=== PATIENT | male | born 1960 | race Caucasian/White ===

== ENCOUNTER 2017-01-01 08:59 | Day surgery (SDC) | payer OTHER ==
[~2017-01-01 08:59] MED LIST: LACTATED RINGERS 1,000 ML IV SCH; LIDOCAINE 1% 20 ML VIAL (10MG/ML) FOR IV START INTRADERMA PRN
[2017-01-01 10:08] VITALS: TEMP 98
[2017-01-01] MEDS ORDERED: PROPOFOL 10 MG/ML 20 ML VIAL IV ONE (10:50)
[2017-01-01 11:18] VITALS: PULSE 59
--- NOTE | 2017-01-01 11:21 | P.PCN ---
Date of Procedure: 01/01/17 Procedure(s) Performed: Procedure: Total colonoscopy. Preoperative diagnosis: Screening for neoplasia. Postoperative diagnosis: Exam within normal limits. Preparation: HalfLytely prep. Sedation: Was provided by anesthesia. Brief clinical history: The patient is a 56-year-old male who is referred for this evaluation for screening for neoplasia age being his risk factor. There is no family history of colon cancer. The patient has no abdominal complaints, bleeding or anemia. This would be his first colonoscopy. Procedure: With the patient on his left lateral decubitus position and after informed consent and adequate sedation, the perianal area was inspected and it did not show any fissures or fistulas. There were no masses felt on digital rectal examination. The Olympus CFQ 160L video colonoscope was then inserted in the rectum in the usual fashion and advanced to the cecum. The mucosa appeared healthy. No polyps or tumors were seen or any obvious diverticular disease or other pathology. I retroflexed the endoscope in the rectum before the endoscope was withdrawn. The patient tolerated the procedure well. Plan: The patient was reassured. He will follow up with you as planned, and I recommended repeat exam in 10 years.
[2017-01-01 11:35] VITALS: BP 119/74; RESP 18
== END 2017-01-01 11:53 | disposition home or self-care (01) ==
LOC: ORWHC2ENDO 08:59
DX: Z12.11 Encounter for screening for malignant neoplasm of colon (principal); J44.9 Chronic obstructive pulmonary disease, unspecified; I10 Essential (primary) hypertension; Z79.1 Long term (current) use of non-steroidal anti-inflammatories (NSAID); Z79.899 Other long term (current) drug therapy; Z87.891 Personal history of nicotine dependence
CPT/HCPCS: G0121; J2704

== ENCOUNTER → 2017-02-05 | Outpatient (CLI) | payer OTHER ==
--- NOTE | 2017-02-05 09:56 | XR ---
Right knee HISTORY: Right knee pain 3 views of the right knee There is no evident joint effusion. Suspect there are vascular calcifications. Minimal remodeling, diane int space loss in the medial compartment noted, possible subchondral sclerosis. Alignment and bone mi neralization are normal. IMPRESSION: Mild osteoarthritic change is suspected. Consider knee MRI for better evaluation.
== END | disposition home or self-care (01) ==
LOC: RADXRYALE 09:26
PROVIDERS: ATTEND Physician Assistant
DX: M25.562 Pain in left knee (principal)

== ENCOUNTER → 2017-02-26 | Outpatient (CLI) | payer OTHER ==
--- NOTE | 2017-02-26 21:14 | MR ---
EXAMINATION TYPE: MR knee RT wo con DATE OF EXAM: 02/26/2017 COMPARISON: Knee x-ray February 05, 2017 HISTORY: Rt knee pain/injury 2 months ago TECHNIQUE: Multiplanar, multisequence images of the knee is performed without IV contrast. FINDINGS: MEDIAL MENISCUS: Anterior and posterior horns are intact without tear. LATERAL MENISCUS: Anterior and posterior horns are intact without tear. CRUCIATE LIGAMENTS: The anterior and posterior cruciate ligaments are intact and unremarkable. COLLATERAL LIGAMENTS: The medial collateral ligament and lateral collateral ligament complex are inta ct and unremarkable. EXTENSOR MECHANISM: Visualized quadriceps and patellar tendons are intact. EFFUSION: No significant suprapatellar joint effusion. POPLITEAL CYST: No popliteal/rodrigez cyst. TRICOMPARTMENT SPACES: There is mild tricompartment joint space loss and minimal central spurring. CARTILAGE: There is no significant chondromalacia patella. No significant cartilaginous loss is seen. BONE MARROW SIGNAL: No focal abnormal marrow signal is appreciated. OTHER: No additional significant abnormality is appreciated. IMPRESSION: No meniscal or ligamentous tear is seen. No suspicious finding is seen to account for pat ient's symptoms.
== END | disposition home or self-care (01) ==
LOC: RADMRIMAIN 19:32
PROVIDERS: ATTEND Physician Assistant
DX: M17.0 Bilateral primary osteoarthritis of knee (principal)

== ENCOUNTER → 2017-11-05 | Outpatient (CLI) | payer OTHER ==
--- NOTE | 2017-11-05 23:57 | MR ---
EXAMINATION TYPE: MR lumbar spine wo con DATE OF EXAM: 11/05/2017 COMPARISON: None HISTORY: low back pain x1 year TECHNIQUE: Multiplanar, multisequence images of the lumbar spine were acquired. Lumbar vertebra have normal alignment. Disc spaces are fairly normal. Lumbar nerve roots appear marco antonio l. There is no spinal stenosis. There is no compression fracture. There is no lumbar paraspinal mass. The upper sacroiliac joints appear intact. There is slight decreased signal in the L5-S1 disc. The n eural foramina appear widely patent. There is a small posterior disc bulge at L5-S1. IMPRESSION: Minor degenerative disc changes at L5-S1. No spinal stenosis. There is developmentally adequate spina l canal.
== END | disposition home or self-care (01) ==
LOC: RADMRIMAIN 21:45
PROVIDERS: ATTEND Nurse Practitioner
DX: M47.817 Spondylosis without myelopathy or radiculopathy, lumbosacral region (principal)
CPT/HCPCS: 72148

== ENCOUNTER → 2020-08-15 | Outpatient (CLI) | payer OTHER ==
--- NOTE | 2020-08-15 15:55 | XR ---
EXAMINATION TYPE: XR lumbosacral spine min 4V DATE OF EXAM: 08/15/2020 CLINICAL HISTORY: Lower back pain for 3 to 4 weeks, no known injury TECHNIQUE: Frontal, lateral, and oblique images of the lumbar spine are obtained. COMPARISON: MRI lumbar spine 11/05/2017 FINDINGS: There are 5 lumbar type vertebral bodies identified. The lumbar spine shows satisfactory alignment without evidence of acute fracture or dislocation. Vertebral body heights are within normal limits. No spondylolisthesis. There is minimal L5-S1 disc space narrowing. Mild degenerative spurri ng of the endplates diffusely. There is facet arthropathy of L5-S1 bilaterally. Calcified atheroscler otic disease of the abdominal aorta. IMPRESSION: 1. No acute fracture or dislocation is seen in the lumbar spine. 2. Mild degenerative disc disease, and L5-S1 facet arthropathy.
== END | disposition home or self-care (01) ==
LOC: RADXRYALE 11:47
PROVIDERS: ATTEND Family Medicine
DX: M51.37 Other intervertebral disc degeneration, lumbosacral region (principal)
CPT/HCPCS: 72110

== ENCOUNTER → 2020-08-30 | Outpatient (CLI) | payer OTHER ==
--- NOTE | 2020-08-31 06:13 | MR ---
EXAMINATION TYPE: MR lumbar spine wo con DATE OF EXAM: 08/30/2020 COMPARISON: MRI lumbar spine November 05, 2017 HISTORY: Low back pain for years that goes into both legs. TECHNIQUE: Multiplanar, multisequence imaging of the lumbar spine is performed without IV contrast. FINDINGS: Sagittal images of the lumbar spine show vertebral body heights and alignment to remain sat isfactory. Some increasing multilevel disc desiccation most prominent at L5-S1 level is noted. Mild disc space narrowing L5-S1 level redemonstrated. The conus medullaris remains normal in position and signal ending superior L1 level. The bone marrow signal intensity is within normal limits. Axial images show T12-L1, L1-L2, and L2-L3 levels also appear within normal limits. Axial images at L3-L4 level show mild broad disc bulge with spinal canal is preserved in bilateral ne ural foramina are patent. Axial images at L4-L5 level show mild facet arthropathy bilaterally. Axial images at L5-S1 level shows broad-based right paracentral disc protrusion. Spinal canal is pres erved. Some posterior spurring is present. Patent bilateral neural foramina. Paraspinal muscle bulk is maintained. IMPRESSION: Mild degenerative changes in the lumbar spine as detailed above, no significant progressi on from 2018 MRI.
== END | disposition home or self-care (01) ==
LOC: RADMRIMAIN 16:55
PROVIDERS: ATTEND Family Medicine
DX: M47.816 Spondylosis without myelopathy or radiculopathy, lumbar region (principal)
CPT/HCPCS: 72148

== ENCOUNTER → 2020-10-19 | Outpatient (CLI) | payer OTHER ==
[2020-10-19 09:54] VITALS: BP 159/97; PULSE 85; RESP 16; TEMP 97.9
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
== END ==
LOC: PNWHC3 09:32
PROVIDERS: ATTEND Specialist
DX: M47.816 Spondylosis without myelopathy or radiculopathy, lumbar region (principal); M51.36 Other intervertebral disc degeneration, lumbar region; J44.9 Chronic obstructive pulmonary disease, unspecified; F17.210 Nicotine dependence, cigarettes, uncomplicated
CPT/HCPCS: 99211

== ENCOUNTER → 2020-11-11 | Day surgery (SDC) | payer OTHER ==
[2020-11-10 09:04] VITALS: BMI 20.7
[~2020-11-11] MED LIST changes: -LIDOCAINE 1% 20 ML VIAL (10MG/ML) FOR IV START INTRADERMA PRN; +MIDAZOLAM 2 MG/2 ML VIAL ONE; +ROPIVACAINE 5MG/ML 20ML VIAL ONE; +TRIAMCINOLONE ACETONIDE 40 MG/ML 1 ML VIAL ONE; +fentaNYL (PF) 50 MCG/ML 2 ML AMP ONE
[2020-11-11 12:50] VITALS: TEMP 97.7
--- NOTE | 2020-11-11 13:32 | P.PCN ---
Date of Procedure: 11/11/20 Description of Procedure: Description of Procedure: Date of Procedure: 11/11/20 Surgeon: Marquis Meza Pathology: none sent Condition: stable Disposition: PACU Description of Procedure: PREOPERATIVE DIAGNOSIS : 1- Lumbar spondylosis with Facet Arthropathy without myelopathy . 2- Lumber degenerative disc disease POSTOPERATIVE DIAGNOSIS: 1- Lumbar spondylosis with Facet Arthropathy without myelopathy . 2- Lumber degenerative disc disease PROCEDURE: Second Diagnostic bilateral L4 -5 , and L5-S1 medial branch block under fluoroscopy Physician: Marquis Meza MD ANESTHESIA: Local with 1% lidocaine; IV moderate conscious sedation by the anesthesia Department . EBL: Negligible COMPLICATION: None. PROCEDURE INDICATION: Chronic low back pain secondary to Facet arthropathy unresponsive to conservative treatment. PROCEDURE DESCRIPTION: the patient was seen and identified in the preop holding area , risks and benefits and possible complications of the procedure and alternatives were discussed with the patient, and the patient agreed to proceed with the procedure and signed the consent. IV was started and vital signs monitored during the procedure and fluoroscopy was used to maximize the benefit and accuracy of the needle placement, sedation was given to decrease patient anxiety, patient was taken to the procedure room and placed in prone position vital signs monitored. The patient was brought into the procedure room and placed in prone position. Skin was prepped with Chloraprep and draped in a sterile manner. Lidocaine 1% was used to numb the skin up at the target points that were chosen as follows: at the L5-S1 level which corresponds to the dorsal ramus of L5 the target points were at the superior medial aspect of the sacral ala on each side of the spine on the AP view of fluoroscopy, and for theL3 and L4 medial branches the target points were the connection between the transverse process and the superior to go process of L4 and L5 respectively on the oblique views of fluoroscopy. I used 22-gauge 3-1/2 inch Quincke spinal needles for this procedure and after contacting bone at the target points mentioned above I injected 1 mL of a mixture of Kenalog 40 mg +5 MLS of Ropivacaine 0.5% PF . Patient tolerated procedure well. At the end of the procedure the needles removed and a bandage applied after the skin was cleaned the cleaning solution. patient was then taken to the recovery room in stable condition and monitored in the recovery room for 20-30 minutes and discharged home in stable condition after discharge criteria met . A copy of the needle placement picture was saved to the C-arm machine.
[2020-11-11 13:39] VITALS: RESP 17
--- NOTE | 2020-11-11 13:46 | FL ---
EXAMINATION TYPE: FL guided pain mgmt statistic DATE OF EXAM: 11/11/2020 HISTORY: Fluoroscopy time 7 seconds of fluoroscopy provided. IMPRESSION: 1. Fluoroscopy time.
[2020-11-11 13:53] VITALS: BP 125/80; PULSE 78
== END ==
LOC: ORPAIN 12:24
PROVIDERS: ATTEND Anesthesiology
DX: M47.816 Spondylosis without myelopathy or radiculopathy, lumbar region (principal); G89.29 Other chronic pain; J44.9 Chronic obstructive pulmonary disease, unspecified; F17.210 Nicotine dependence, cigarettes, uncomplicated; E03.9 Hypothyroidism, unspecified; G43.909 Migraine, unspecified, not intractable, without status migrainosus
CPT/HCPCS: 64493; 64494; 64495; J2250; J3301; J3010; J2795

== ENCOUNTER → 2020-12-07 | Outpatient (CLI) | payer OTHER ==
[2020-12-07 09:51] VITALS: BP 139/86; PULSE 72; RESP 18; TEMP 97.6
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
== END ==
LOC: PNWHC3 09:38
PROVIDERS: ATTEND Anesthesiology
DX: M51.36 Other intervertebral disc degeneration, lumbar region (principal); M47.816 Spondylosis without myelopathy or radiculopathy, lumbar region; Z87.891 Personal history of nicotine dependence
CPT/HCPCS: 99211

== ENCOUNTER 2021-01-27 09:24 | Day surgery (SDC) | payer OTHER ==
[2021-01-26 10:01] VITALS: BMI 20.7
[~2021-01-27 09:24] MED LIST changes: -MIDAZOLAM 2 MG/2 ML VIAL ONE; -ROPIVACAINE 5MG/ML 20ML VIAL ONE; -TRIAMCINOLONE ACETONIDE 40 MG/ML 1 ML VIAL ONE; -fentaNYL (PF) 50 MCG/ML 2 ML AMP ONE
[2021-01-27 10:22] VITALS: RESP 16; TEMP 98
[2021-01-27 10:32] LABS: HGB 15.1 gm/dL (13.0-17.5); MCH 33.5 pg (25.0-35.0); MCHC 34.3 g/dL (31.0-37.0); MCV 97.8 fL (80.0-100.0); Platelet Count 290 k/uL (150-450); RBC 4.49 m/uL (4.30-5.90); RDW 12.3 % (11.5-15.5); WBC 4.8 k/uL (3.8-10.6)
[2021-01-27] MEDS ORDERED: ROPIVACAINE 5MG/ML 20ML VIAL ONE (10:56)
[2021-01-27] MEDS ORDERED: TRIAMCINOLONE ACETONIDE 40 MG/ML 1 ML VIAL ONE (10:56)
[2021-01-27 11:03] LABS: ALT 25 U/L (4-49); AST 29 U/L (17-59); African American GFR (CKD) >90 (>60 ml/min/1.73 sqM); Albumin 4.2 g/dL (3.5-5.0); Alkaline Phosphatase 68 U/L (38-126); Anion Gap 6 mmol/L; Blood Urea Nitrogen 18 mg/dL (9-20); Calcium 9.5 mg/dL (8.4-10.2); Carbon Dioxide 27 mmol/L (22-30); Chloride 103 mmol/L (98-107); Creatine Kinase 126 U/L (55-170); Glucose 108 mg/dL (74-99); Non-African American GFR(CKD) >90 (>60 ml/min/1.73 sqM); Potassium 4.4 mmol/L (3.5-5.1); Sodium 136 mmol/L (137-145); Total Bilirubin 0.6 mg/dL (0.2-1.3); Total Protein 6.7 g/dL (6.3-8.2)
[2021-01-27] MEDS ORDERED: fentaNYL (PF) 50 MCG/ML 2 ML AMP ONE (11:04)
[2021-01-27] MEDS ORDERED: MIDAZOLAM 2 MG/2 ML VIAL ONE (11:04)
[2021-01-27 11:17] LABS: T4, Free (Free Thyroxine) 1.32 ng/dL (0.78-2.19)
--- NOTE | 2021-01-27 11:17 | P.PCN ---
Date of Procedure: 01/27/21 Procedure(s) Performed: PREOPERATIVE DIAGNOSIS : 1- Lumbar spondylosis with Facet Arthropathy without myelopathy . 2- Lumber degenerative disc disease POSTOPERATIVE DIAGNOSIS: 1- Lumbar spondylosis with Facet Arthropathy without myelopathy . 2- Lumber degenerative disc disease PROCEDURE: Diagnostic bilateral L3 , L4 , and L5 medial branch block under fluoroscopy guidance(fluoroscopy images available in the radiology Department ) ( To target the facet joint between Bilateral L4-5 , and L5-S1 ) ANESTHESIA:, monitered anesthesia care .. EBL: Minimal COMPLICATION: None PROCEDURE INDICATION: Chronic low back pain secondary to Facet arthropathy unresponsive to conservative treatment. PROCEDURE DESCRIPTION: the patient was seen and identified in the preop holding area , risks and benefits and possible complications of the procedure and alternative were discussed with the patient, and the patient agreed to proceed with the procedure and signed the consent and vital signs monitored during the procedure and fluoroscopy was used to maximize the benefit and accuracy of the needle placement, and sedation was given to decrease patient anxiety, patient was taken to the procedure room and placed in prone position vital signs monitored in the back prepped with chlorhexidine X3 then under strict sterile technique using a right oblique fluoroscopy ,the junction of the transverse process and the superior articulating process of the right L3 , L4 , and L5 vertebra which corresponding to the fluoroscopy image of the eye of the Favio dog on the block side for the medial branches and subsequently , after local infiltration of skin and subcu tissuies with Ropivacaine 0.5 % , one mL at each level ,then 22-gauge Quincke-type needles , 3 needle was used , each one of them placed at the junction of the base of the transverse process and the superior articular process at the appropriate level, and the needle was advanced until the periosteum contacted, needle placement confirmed with AP oblique and lateral view and after appropriate needle placement confirmed, and after negative aspiration for heme and CSF and there was no paresthesia 1-1/2 mL of Ropivacaine 0.5% mixed with 20 mg Kenalog , then half mL injected at each level after negative aspiration the needle subsequently removed and the same procedure repeated for the left side at left side at L3 , L4 and L5 levels. At the end of the procedure and the needles removed and a bandage applied after the skin was cleaned the cleaning solution patient taken to recovery room in stable condition and monitors in the recovery room for 20-30 minutes and discharged home in stable condition after discharge criteria met and patient will follow up with the pain clinic in 2-4 weeks
[2021-01-27] MEDS ORDERED: IV FLUID CONTINUATION 400 ML IV ONE (11:21)
--- NOTE | 2021-01-27 11:26 | FL ---
EXAMINATION TYPE: FL guided pain mgmt statistic DATE OF EXAM: 01/27/2021 HISTORY: Fluoroscopy time 9 seconds of fluoroscopy provided. IMPRESSION: 1. Fluoroscopy time.
[2021-01-27 11:52] VITALS: BP 159/92; PULSE 69
[2021-01-27 19:23] LABS: Chol/HDL Ratio 2.82 Ratio; LDL Cholesterol,Calculated 127.7 mg/dL (0.0-131.0)
== END 2021-01-27 12:09 | disposition home or self-care (01) ==
LOC: ORPAIN 09:24
PROVIDERS: ATTEND Specialist
DX: G89.29 Other chronic pain (principal); M47.816 Spondylosis without myelopathy or radiculopathy, lumbar region; I10 Essential (primary) hypertension; J44.9 Chronic obstructive pulmonary disease, unspecified; E78.5 Hyperlipidemia, unspecified; F17.210 Nicotine dependence, cigarettes, uncomplicated; E07.9 Disorder of thyroid, unspecified
CPT/HCPCS: 84439; 80061; 80053; 82550; 84443; 85027; 82306; 64493; 64494; J2250; J3301; J3010; J2795

== ENCOUNTER → 2021-02-13 | Outpatient (CLI) | payer OTHER ==
[2021-02-13 10:13] VITALS: BP 156/98; PULSE 92; RESP 18
--- NOTE | 2021-02-13 10:15 | P.PN ---
Subjective Progress Note Date: 02/13/21 Guanako is a 60-year-old male presenting to clinic today for follow-up appointment after his confirmatory lumbar medial branch block at L4 5 and L5-S1 bilaterally. He reports that he's had significant relief with his confirmatory intervention. He states he even feels that he has better than his first procedure which gave him greater than 80% relief. He is reporting greater than 80% relief at this point. He is able to do his daily activities with decreasing pain. However his pain has returned since procedure. He reports the pain is in his lower back on both sides however right is greater than left. Reports his pain is worse with certain positions excessive standing and excessive walking. Pain is better with ice, heat, positions and massage with virus freeze. He also is continuing his home stretching. He takes [place] 10 mg and ibuprofen 800 mg. He gets his medications from his family primary care provider. He would like to move forward with a RFA of bilateral L4 5 and L5-S1 since report significant reduction in his pain with the diagnostic and confirmatory procedures. Objective - Exam Physical Examinations : -Constitutiona : Cooperative , not in acute distress . -HEENT : nech : supple , no Lymphadenopathy , normal thyroid size . : eyes : no ptosis , no icterus, no photophobia . - neurologic : Cranial nerve II to XII intact , no focal neurological deffecit . -psychatric : alert , oriented X 3 , appropriate affect , intact judgment and insight . -Lymphatic : no Lymphadenopathy . - musculoskeltal : moter stegnth lower extremities ,thigh and legs 5/5 Right side , 5/5 Left side deep tendon reflexes : normal Knee Jerk , normal ankle Jerk lumber facet Loading Test =positive Right , positive Left Range of motion of the lumbar spine Flexion 30 degrees, extension 10 degrees Painful to palpation bilateral lumbar paravertebral muscular Assessment and Plan Assessment: Assessment and plan Assessment: 1-Lumbar degenerative disc disease. 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 Plan: Scheduled patient for bilateral lumbar RFA at L4 5 and L5-S1. Patient's questions and concerns were answered appropriately and completely. - PQRS measures = - Patient's medications are documented in the chart. -Tobacco use is positive counseling.Given. -Patient's has not received pneumococcal vaccine. -Advanced care planning discussed, patient not eligible. -Opiate contract not signed. -Pain positive and follow-up visit/procedure is scheduled. -Patient's blood pressure measured 156/98 , and documented in the record ,and patient will follow up with the primary care. -Patient was not identified as an unhealthy alcohol user Time with Patient: Less than 30
== END ==
LOC: PNWHC3 09:39
PROVIDERS: ATTEND Student in an Organized Health Care Education/Training Program
DX: M51.36 Other intervertebral disc degeneration, lumbar region (principal); M47.816 Spondylosis without myelopathy or radiculopathy, lumbar region; Z87.891 Personal history of nicotine dependence
CPT/HCPCS: 99211

== ENCOUNTER 2021-04-21 09:18 | Day surgery (SDC) | payer OTHER ==
[2021-04-17 08:39] VITALS: BMI 20.7
[2021-04-21 09:55] VITALS: TEMP 97.3
[2021-04-21] MEDS ORDERED: TRIAMCINOLONE ACETONIDE 40 MG/ML 1 ML VIAL ONE (10:35)
[2021-04-21] MEDS ORDERED: fentaNYL (PF) 50 MCG/ML 2 ML AMP ONE (10:35)
[2021-04-21] MEDS ORDERED: ROPIVACAINE 5MG/ML 20ML VIAL ONE (10:35)
[2021-04-21] MEDS ORDERED: MIDAZOLAM 2 MG/2 ML VIAL ONE (10:35)
--- NOTE | 2021-04-21 11:05 | P.PCN ---
Date of Procedure: 04/21/21 Surgeon: Marquis Meza Pathology: none sent Condition: stable Disposition: PACU Description of Procedure: PREOPERATIVE DIAGNOSIS: Lumbar spondylosis without myelopathy POSTOPERATIVE DIAGNOSIS: Lumbar spondylosis without myelopathy PROCEDURES : Radiofrequency thermocoagulation L4-L5, and L5-S1 medial branch bilaterally with fluoroscopic guidance ANESTHESIA: IV moderate conscious sedation by the anesthesia Department Physician:Marquis Meza MD EBL: Minimal PROCEDURE INDICATION: The patient with low back pain secondary to lumbar facet arthropathy who had more than 50% relief of her pain with previous diagnostic lumbar medial branch block with bupivacaine. PROCEDURE DESCRIPTION / TECHNIQUE: The patient was seen and identified in the preoperative area. Risks, benefits, complications, including but not limited to risk of infection ,bleeding , allergic reactions to the medications and no complete pain relief , and alternatives were discussed with the patient, the patient agreed to proceed with the procedure and signed the consent. IV was started. Vital signs remained stable throughout the procedure. Patient was taken to the OR and time out was completed. The patient was placed in the prone position on the procedure table. The lumber area was prepped and draped in the usual sterile fashion. . Vital signs were closely monitored during the procedure .IV sedation was used during the procedure to decrease patients anxiety. The target points were identified as follows: For the L5-S1 level which corresponds to the dorsal ramus of L5 the target point was at the superior medial aspect of the sacral ala on the Rt side of the spine on the AP view of fluoroscopy and for the L3, and L4 medial branches the target points were at the connection between the transverse process and the superior articular process of L4, and L5 vertebra respectively on the Rt oblique view of fluoroscopy. skin was marked, and localized with 1% lidocaineat these points. Subsequently, an 18 [id number] radiofrequency needles with a 10-mm curved active tips were advanced guided by fluoroscopy to each of the target points mentioned above in a superior medial direction to get the active tips as parallel as possible to the medial branches tracks. AP, oblique, and lateral views of fluoroscopy were used to verify needle tips position. Each level then underwent motor testing at 2.5 Hz and 0 to 3 volt with local stimulation, but no radicular symptoms down the legs. I then injected 1 mL of lidocaine 1% in each needle before starting radiofrequency thermocoagulation at 80 degrees celsius for 90 seconds. After that I injected 1 ml of PF Ropivacaine 0.5%(3 mls) with 40 mg of Kenalog, 1 mL of this mixture was given in each needle before taking the needles out intact. Then the left side with the same levels was done in the same manner. At the end of the procedure, the skin was cleansed and bandages were applied. A copy of needle placement fluoroscopy was saved on the C-arm machine. COMPLICATIONS: No acute complications. DISPOSITION / PLANS: The patient was placed in a supine position and transferred to the recovery area in a stable condition for observation and was discharged from the recovery room after meeting discharge criteria. Home discharge instructions given to the patient by the staff. The patient was reexamined prior to discharge. The patient will schedule a follow up in the clinic in 2-4 weeks.
[2021-04-21] MEDS ORDERED: IV FLUID CONTINUATION 1,000 ML IV ONE (11:12)
[2021-04-21 11:18] VITALS: RESP 16
[2021-04-21 11:29] VITALS: BP 155/88; PULSE 85
--- NOTE | 2021-04-21 12:16 | FL ---
Fluoroscopy HISTORY: Pain 23 seconds fluoroscopy time supplied to the referring clinician. 2 intraoperative C-arm images docum ent the procedure. See dictated report from anesthesia.
== END 2021-04-21 11:52 | disposition home or self-care (01) ==
LOC: ORPAIN 09:18
PROVIDERS: ATTEND Anesthesiology
DX: M51.36 Other intervertebral disc degeneration, lumbar region (principal); M47.816 Spondylosis without myelopathy or radiculopathy, lumbar region; J44.9 Chronic obstructive pulmonary disease, unspecified; F17.200 Nicotine dependence, unspecified, uncomplicated; E07.9 Disorder of thyroid, unspecified; G43.909 Migraine, unspecified, not intractable, without status migrainosus; Z79.890 Hormone replacement therapy; Z79.891 Long term (current) use of opiate analgesic; Z79.899 Other long term (current) drug therapy
CPT/HCPCS: 64635; 64636; J2250; J3301; J2001; J3010; J2795

== ENCOUNTER → 2021-09-15 | Outpatient (CLI) | payer OTHER ==
--- NOTE | 2021-09-15 15:51 | CTL ---
EXAMINATION TYPE: CT Low Dose Lung DATE OF EXAM ORDERED: 09/15/2021 HISTORY: Long-term tobacco use. Lung cancer screening CT DLP: 41.[address] CTDI: 1.1 mGy Automated exposure control for dose reduction was used. SCREENING VISIT: Baseline COMPARISON: None TECHNIQUE: Low dose computed tomography scan was performed through the chest at 1 mm thick sections a nd reconstructed images in multiple planes at 1 mm and [address] DIAGNOSTIC QUALITY: Satisfactory FINDINGS: LUNG NODULES: Present, detailed below: A few small scattered calcified nodules are benign granulomas largest measures 4 x 3 mm peripheral ri ght upper lobe axial image 49. There is 3 mm nonspecific nodule along the fissure on axial image 151 on the left. Possible 4 mm left upper lobe nodule sagittal image 204. Possible 4 mm peripheral right lung nodule axial image 207. No significant greater than 5 mm noncalcified pulmonary nodules. LUNGS: COPD: Severity: [id number] Fibrosis: Severity: Mild to moderate biapical extending posteriorly and laterally Lymph nodes: No greater than 1 cm noncalcified. Prominent but calcified left hilar lymph nodes. Other findings: None RIGHT PLEURAL SPACE: Effusion: None Calcification: None Thickening: None Pneumothorax: None LEFT PLEURAL SPACE: Effusion: None Calcification: None Thickening: None Pneumothorax: None HEART: Heart Size: Normal Coronary Calcification: Mild Pericardial Effusion: None OTHER FINDINGS: Upper abdomen: None Bony thorax: Slight scoliotic curvature Supraclavicular region: None Other: None IMPRESSION: Evidence of old granulomatous disease. Mild to moderate emphysematous change and biapical scarring. No significant greater than 5 mm noncalcified pulmonary nodules. CT LUNG RAD AND CT CHEST RECOMMENDATION: Lung-Rad 2 Benign Appearance or Behavior: Continue annual sc reening with LDCT in 12 months. S Modifier (other clinically significant findings): None
== END | disposition home or self-care (01) ==
LOC: RADCTMAIN 11:39
PROVIDERS: ATTEND Family Medicine
DX: Z12.2 Encounter for screening for malignant neoplasm of respiratory organs (principal); J43.9 Emphysema, unspecified; J98.4 Other disorders of lung; D71 Functional disorders of polymorphonuclear neutrophils; Z87.891 Personal history of nicotine dependence
CPT/HCPCS: 71271

== ENCOUNTER → 2022-09-17 | Outpatient (CLI) | payer OTHER ==
--- NOTE | 2022-09-17 11:48 | CTL ---
EXAMINATION TYPE: CT Low Dose Lung DATE OF EXAM ORDERED: 09/17/2022 HISTORY: Long-term tobacco use. Lung cancer screening CT DLP: [address] CTDI: 1.0 mGy Automated exposure control for dose reduction was used. SCREENING VISIT: First after baseline COMPARISON: Prior study September 15, 2021 TECHNIQUE: Low dose computed tomography scan was performed through the chest at 1 mm thick sections a nd reconstructed images in multiple planes at 1 mm and [address] DIAGNOSTIC QUALITY: Satisfactory FINDINGS: LUNG NODULES: Present, detailed below: A few small scattered calcified nodules or benign granulomas are redemonstrated, largest measures 4 x 3 mm peripheral right upper lobe axial image 81. There is 553 mm calcified left lower lobe nodule ax ial image 252. Stable 3 mm calcified nodule along fissure axial image 166.. New focal 11 x 5 mm scarlike opacity left upper lobe axial image 100 with focal bronchiectasis. Possi ble new 10 x 4 mm peripheral right upper lobe nodule axial image 18. LUNGS: COPD: Severity: Moderate Fibrosis: Severity: Mild to moderate biapical extending posteriorly and laterally greater on the righ t redemonstrated Lymph nodes: No greater than 1 cm noncalcified. Prominent but calcified left hilar lymph nodes. Other findings: None RIGHT PLEURAL SPACE: Effusion: None Calcification: None Thickening: None Pneumothorax: Small to tiny estimated 5-10% LEFT PLEURAL SPACE: Effusion: None Calcification: None Thickening: None Pneumothorax: None HEART: Heart Size: Normal Coronary Calcification: Mild Pericardial Effusion: None OTHER FINDINGS: Upper abdomen: None Bony thorax: Slight scoliotic curvature redemonstrated. Supraclavicular region: None Other: None IMPRESSION: Evidence of old granulomatous disease. Mild to moderate emphysematous change and biapical scarring. New small right apical pneumothorax. New focal small scarlike opacity with bronchiectasis in the left upper lobe. CT LUNG RAD AND CT CHEST RECOMMENDATION: Lung-Rad 3 Probably Benign: 6 month follow-up LDCT. S Modifier (other clinically significant findings): S Small right-sided pneumothorax estimated at 5-10%. A [place] level critical message alert has been initiated for Inder Abernathy DO via the [employer] Critical Results System on 09/17/2022 11:45 AM. This message alert has been sent to Inder ambriz DO via the preferences provided by the clinician for the receipt of Radiology Critical Findings. Message ID [id number].
== END | disposition home or self-care (01) ==
LOC: RADCTMAIN 10:54
PROVIDERS: ATTEND Family Medicine
DX: Z12.2 Encounter for screening for malignant neoplasm of respiratory organs (principal); J43.9 Emphysema, unspecified; J93.9 Pneumothorax, unspecified; J47.9 Bronchiectasis, uncomplicated; J98.4 Other disorders of lung; F17.210 Nicotine dependence, cigarettes, uncomplicated
CPT/HCPCS: 71271

== ENCOUNTER → 2022-11-10 | Outpatient (CLI) | payer OTHER ==
--- NOTE | 2022-11-10 11:42 | PE ---
EXAMINATION TYPE: PET CT fusion skull to thigh DATE OF EXAM: 11/10/2022 CLINICAL INDICATION:Male, 62 years old with history of R91.1 Rt lobular nodule; TECHNIQUE: Following the intravenous administration of 11.01 mCi of F-18 FDG, whole body images are performed from the skull base to the midthigh. Images are reviewed on the computer in the coronal, axial, and sagittal planes. Reconstructed rotating images are created on independent workstation and reviewed on the computer. A non-contrast CT is performed in conjunction with the PET scan. Glucose level 122 mg/dL COMPARISON: CT 09/17/2022, PET/CT None, FINDINGS: Mediastinal SUV mean is 1.1. Hepatic parenchyma SUV mean is 1.3. SKULL BASE AND NECK: No suspicious radiotracer activity. CHEST, MEDIASTINUM, AND HILAR REGION: No suspicious radiotracer activity. Scarring changes in the rig ht lung and to lesser extent the left lung which does not demonstrate increased FDG activity. No susp icious pulmonary nodules identified. ABDOMEN AND PELVIS: No suspicious radiotracer activity. MUSCULOSKELETAL STRUCTURES: No suspicious radiotracer activity. OTHER CT: Minimal atherosclerotic arterial vasculature and coronary arteries. Prior right pneumothora x and line visualized. Moderate to severe emphysema changes throughout the lungs. IMPRESSION: 1. No suspicious radiotracer activity. No abnormal FDG activity within the lungs. Continued surveill ance with low-dose lung cancer screening yearly recommended. 2. Resolution of prior pneumothorax and 09/17/2022.
== END | disposition home or self-care (01) ==
LOC: RADPETMAIN 08:35
PROVIDERS: ATTEND Internal Medicine Critical Care Medicine
DX: R91.1 Solitary pulmonary nodule (principal)
CPT/HCPCS: 78815; A9552

== ENCOUNTER 2024-02-03 15:49 | Inpatient (IN) | payer OTHER ==
[2024-02-03] MEDS: MAGNESIUM SULFATE-D5W PMX 1 GM in DEXTROSE/WATER 1 100ML.BAG IVPB STA (16:48)
[2024-02-03] MEDS: methylPREDNISolone SOD SUCCI 125 MG/2 ML VIAL IV STA (16:49)
[2024-02-03 17:01] LABS: Basophils % (A) 0 %; Eosinophils # (A) 0.1 k/uL (0-0.7); Eosinophils % (A) 1 %; HCT 49.5 % (39.0-53.0); HGB 15.8 gm/dL (13.0-17.5); Lymphocytes % (A) 12 %; MCH 31.4 pg (25.0-35.0); MCHC 31.9 g/dL (31.0-37.0); MCV 98.2 fL (80.0-100.0); Mean Platelet Volume 7.6; Monocytes # (A) 0.5 k/uL (0-1.0); Monocytes % (A) 6 %; Neutrophils # (A) 6.4 k/uL (1.3-7.7); Neutrophils % (A) 78 %; Platelet Count 287 k/uL (150-450); RBC 5.04 m/uL (4.30-5.90); RDW 12.3 % (11.5-15.5); WBC 8.2 k/uL (3.8-10.6)
[2024-02-03] MEDS: IPRATROPIUM-ALBUTEROL 3 ML NEB INHALATION STA (17:02)
[2024-02-03 17:11] LABS: Prothrombin Time 10.9 sec (10.0-12.5)
[2024-02-03 17:12] LABS: ALT 23 U/L (4-49); AST 32 U/L (17-59); African American GFR (CKD) >90 (>60 ml/min/1.73 sqM); Albumin 4.6 g/dL (3.5-5.0); Alkaline Phosphatase 79 U/L (38-126); Anion Gap 8 mmol/L; Blood Urea Nitrogen 23 mg/dL (9-20); Carbon Dioxide 27 mmol/L (22-30); Chloride 101 mmol/L (98-107); Glucose 142 mg/dL (74-99); Non-African American GFR(CKD) >90 (>60 ml/min/1.73 sqM); Potassium 4.8 mmol/L (3.5-5.1); Sodium 136 mmol/L (137-145); Total Bilirubin 0.7 mg/dL (0.2-1.3)
--- NOTE | 2024-02-03 17:15 | XR ---
EXAMINATION TYPE: XR chest 1V portable DATE OF EXAM: 02/03/2024 Comparison: None Clinical History: 63-year-old male shortness of breath Findings: Moderate-sized right-sided pneumothorax estimated at 30% and measuring 5.5 cm from the lateral apical margin. The cardiomediastinal shift. Heart normal size. Hyperinflation. No consolidation or pleural effusion seen. Blunting of the costophrenic angles probably pleural parenchymal scarring. Impression: Moderate-sized right-sided pneumothorax estimated at 30%. Background COPD. No tension at this time. Tejal ramos to Dr. Richmond in the ER at 5:12 PM. [facility], , 02/03/2024 5:13 PM
[2024-02-03 17:20] LABS: Partial Thromboplastin Time 19.6 sec (22.0-30.0)
[2024-02-03 17:21] LABS: NT-Pro-B-Type Natriuretic Pept 97 pg/mL
[2024-02-03] MEDS: LIDOCAINE 1% INJ 10MG/ML (20 ML MDV) SQ ONE (17:50)
[2024-02-03] MEDS: PROPOFOL 10 MG/ML 20 ML VIAL IV ONE ×2 (17:50→17:55)
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
--- NOTE | 2024-02-03 18:35 | XR ---
EXAMINATION TYPE: XR chest 1V portable DATE OF EXAM: 02/03/2024 Comparison: 02/03/2024 Clinical History: 63-year-old male chest tube placement Findings: Right-sided Thoravent catheter placed in the interval. Partial reexpansion of the right lung. Now tra ce right apical pneumothorax remains measuring 9 mm versus 5.5 cm, previously. No cardial mediastinal shift. No consolidation or pleural effusion. Impression: Right-sided Thoravent catheter placed in the interval with partial reexpansion of the right lung. Tra ce 9 mm right apical pneumothorax remains. [facility], , 02/03/2024 6:33 PM
[2024-02-03] MEDS ORDERED: NALOXONE 0.4 MG/ML 1 ML VIAL IV PRN ×2 (18:41→22:04)
[2024-02-03] MEDS: IPRATROPIUM-ALBUTEROL 3 ML NEB INHALATION SCH (21:06)
[2024-02-03] MEDS ORDERED: SUMAtriptan succinate 50 MG TAB PO PRN (21:58)
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
[2024-02-03] MEDS: NICOTINE 21MG/24HR PATCH TRANSDERM SCH (23:03)
[2024-02-03] MEDS: oxyCODONE-APAP 7.5-325MG 1 EACH TAB PO PRN (23:04)
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
[2024-02-04] MEDS ORDERED: IPRATROPIUM-ALBUTEROL 3 ML NEB INHALATION PRN (05:03)
[2024-02-04] MEDS: LEVOTHYROXINE 125 MCG TAB PO SCH (06:02)
[2024-02-04 07:31] LABS: Basophils % (A) 0 %; Eosinophils % (A) 0 %; HCT 43.2 % (39.0-53.0); HGB 14.2 gm/dL (13.0-17.5); Lymphocytes # (A) 0.7 k/uL (1.0-4.8); Lymphocytes % (A) 11 %; MCH 32.1 pg (25.0-35.0); MCHC 32.9 g/dL (31.0-37.0); MCV 97.7 fL (80.0-100.0); Mean Platelet Volume 7.2; Monocytes # (A) 0.4 k/uL (0-1.0); Monocytes % (A) 7 %; Neutrophils # (A) 4.9 k/uL (1.3-7.7); Neutrophils % (A) 79 %; Platelet Count 241 k/uL (150-450); RBC 4.43 m/uL (4.30-5.90); RDW 12.3 % (11.5-15.5); WBC 6.2 k/uL (3.8-10.6)
[2024-02-04] MEDS ORDERED: FORMOTEROL FUMARATE 20 MCG/2 ML NEBU INHALATION SCH (08:00)
[2024-02-04 08:02] LABS: African American GFR (CKD) >90 (>60 ml/min/1.73 sqM); Anion Gap 4 mmol/L; Blood Urea Nitrogen 21 mg/dL (9-20); Calcium 8.9 mg/dL (8.4-10.2); Carbon Dioxide 31 mmol/L (22-30); Chloride 101 mmol/L (98-107); Glucose 95 mg/dL (74-99); Non-African American GFR(CKD) >90 (>60 ml/min/1.73 sqM); Potassium 4.2 mmol/L (3.5-5.1); Sodium 136 mmol/L (137-145)
[2024-02-04] MEDS: EZETIMIBE 10 MG TAB PO SCH (08:15)
[2024-02-04] MEDS: FAMOTIDINE 20 MG TAB PO SCH (08:15)
[2024-02-04] MEDS: methylPREDNISolone SOD SUCCI 40 MG/ML 1 ML VIAL IV SCH (08:15)
[2024-02-04] MEDS: ENOXAPARIN 40 MG/0.4 ML SYRINGE SQ SCH (08:16)
[2024-02-04] MEDS: SYMBICORT 160-4.5 MCG INHALER INHALATION SCH (08:27)
--- NOTE | 2024-02-04 08:38 | XR ---
EXAMINATION TYPE: XR chest 2V DATE OF EXAM: 02/04/2024 COMPARISON: 02/03/2024 HISTORY: 63-year-old male pneumothorax follow-up TECHNIQUE: AP and lateral views FINDINGS: Heart is normal size. Aorta and pulmonary vasculature are within normal limits. Hyperinflation. Right -sided Thoravent catheter in place. Small right apical pneumothorax remains estimated at 1.4 cm versu s 1.3 cm, previously. Some patchy right apical opacity likely pleural parenchymal scarring. IMPRESSION: 1. A right-sided Thoravent catheter in place. Small right apical pneumothorax remains, currently 1.4 cm versus 1.3 cm, previously. 2. Background COPD and right apical pleural-parenchymal scarring. [facility], , 02/04/2024 8:35 AM
[2024-02-04 14:08] VITALS: BMI 20.1
--- NOTE | 2024-02-04 15:55 | P.PN ---
Subjective Progress Note Date: 02/04/24 Hospital course: 63-year-old male with past medical history of COPD, hypothyroidism, hyperlipidemia came to the ER on 02/03/2024 with a new onset shortness of breath. He was feeling short of breath from several weeks but has worsened significantly last several days. Initial lab work done in the ER showed WBC 8.2, hemoglobin 15.8, platelets 287, APTT 19.6, sodium 136, potassium 4.8, bicarb 27, BUN 23, creatinine 0.68, glucose 142. EKG done in the ER independently interpreted showed heart rate of 114, no ST segment elevation or depression seen, no T-wave inversions seen. Chest x-ray done independently interpreted in the ER showed moderate-sized right-sided pneumothorax, estimated 30%. Hyperinflation. Chest tube was placed in the right upper chest for pneumothorax in the ER. Admitted to internal medicine service for shortness of breath. Pulmonology consulted. Patient started on DuoNebs and IV Solu-Medrol. Subjective: Patient seen and examined at the bedside. Patient states his breathing is improving. Mild nonproductive cough. Currently on 3 L O2 via nasal cannula. All Systems reviewed and pertinent positives and negatives noted in HPI, all other symptoms are negative Objective: Vital signs reviewed. General: non toxic, no distress, appears at stated age, thin appearing Derm: no unusual rashes/lesions, warm Head: atraumatic, normocephalic, symmetric Eyes: EOMI, no lid lag, anicteric sclera, pupils equal round reactive to light ENT: Nose and ears atraumatic Neck: No cervical lymphadenopathy, trachea midline, supple Mouth: no lip lesion, mucus membranes moist Cardiovascular: S1S2 reg, no murmur, positive dorsalis pedis pulse bilateral, no edema Lungs: Mild bilateral wheezing with reduced breath sounds on the right apex., no rhonchi, no rales, no accessory muscle use Thoravent catheter placed in right upper chest, not draining any fluid Abdominal: soft, nontender to palpation, no guarding Ext: muscle strength 5 out of 5 in all 4 extremities grossly, no gross muscle atrophy, no contractures, Neuro: CN II-XI grossly intact, no gross focal neuro deficits Psych: Alert, oriented, appropriate affect Data reviewed today: Labs: CBC unremarkable. Sodium 136, potassium 4.2, chloride 101, bicarb 31, BUN 21, creatinine 0.57, glucose 95, calcium 8.9 Images: Chest x-ray shows right-sided thoravent catheter is in place. There is a small right apical pneumothorax which is improving compared to previous chest x-ray. Assessment and Plan: 63-year-old male with past medical history of COPD, hypothyroidism, hyperlipidemia came to the ER on 02/03/2024 with a new onset shortness of breath is admitted for evaluation of COPD exacerbation and pneumothorax. #Acute COPD exacerbation #Right-sided pneumothorax #Metabolic alkalosis secondary to above S/p Thoravent catheter placed in right upper chest, not draining any fluid continuous pulse oximetry Continue with bronchodilators DuoNeb DC Solu-Medrol; Transition to p.o. prednisone 40 mg p.o. daily Repeat chest x-ray shows mildly improved pneumothorax compared to previous chest x-ray Pulmonary on board chloride 101, bicarb 31 Repeat BMP in a.m. Chronic Medical Conditions #Hyperlidemia - Continue Atorvastatin 40 mg and ezetimibe 10 mg #Hypothyroidism - Continue home Synthroid 125 mcg daily #Chronic migraine Continue home sumatriptan 50 Mg #Chronic back pain Begin home Percocet 7.53 25 4 times daily as needed #Tobacco addiction -Begin nicotine patch - Counseled patient on smoking cessation F: P.o. E: Replete as needed N: Heart healthy diet E: None DVT ppx: Subq Lovenox Code status: Full code Anticipated discharge place: Pending clinical course Anticipated discharge time: Pending clinical course I saw and evaluated the patient during the morelos and critical portions of this encounter, and discussed the case in detail with the resident author of this note, I agree with the Assessment and Plan, and my changes, if any, are highlighted in blue. Objective - Vital Signs Vital signs: Vital Signs Temp 98.3 F 02/04/24 11:04 Pulse 81 02/04/24 15:36 Resp 28 H 02/04/24 11:04 BP 151/82 02/04/24 11:04 Pulse Ox 98 02/04/24 12:49 FiO2 40 02/03/24 17:07 Intake & Output 02/03/24 02/04/24 02/04/24 18:59 06:59 18:59 Intake Total 240 Output Total 400 Balance -160 Weight 54.431 kg 55 kg 55 kg Intake: Oral 240 Output: Urine 400 Other: Voiding Method Urinal - Labs CBC & Chem 7: 02/04/24 07:02 02/04/24 07:02 Labs: Abnormal Lab Results - Last 24 Hours (Table) 02/03/24 02/03/24 02/04/24 Range/Units 16:46 16:46 07:02 Lymphocytes # 0.7 L (1.0-4.8) k/uL APTT 19.6 L (22.0-30.0) sec Sodium 136 L (137-145) mmol/L Carbon Dioxide (22-30) mmol/L BUN 23 H (9-20) mg/dL Creatinine 0.64 L (0.66-1.25) mg/dL Glucose 142 H (74-99) mg/dL 02/04/24 Range/Units 07:02 Lymphocytes # (1.0-4.8) k/uL APTT (22.0-30.0) sec Sodium 136 L (137-145) mmol/L Carbon Dioxide 31 H (22-30) mmol/L BUN 21 H (9-20) mg/dL Creatinine 0.57 L (0.66-1.25) mg/dL Glucose (74-99) mg/dL
[2024-02-04] MEDS: ALPRAZolam 0.25 MG TAB PO PRN (16:20)
[2024-02-05] MEDS: predniSONE 20 MG TAB PO SCH (08:12)
[2024-02-05 08:36] LABS: Basophils % (A) 0 %; Eosinophils # (A) 0.1 k/uL (0-0.7); Eosinophils % (A) 1 %; HCT 42.7 % (39.0-53.0); HGB 14.7 gm/dL (13.0-17.5); Lymphocytes # (A) 0.9 k/uL (1.0-4.8); Lymphocytes % (A) 14 %; MCH 32.6 pg (25.0-35.0); MCHC 34.4 g/dL (31.0-37.0); MCV 94.8 fL (80.0-100.0); Mean Platelet Volume 7.6; Monocytes # (A) 0.3 k/uL (0-1.0); Monocytes % (A) 5 %; Neutrophils # (A) 5.1 k/uL (1.3-7.7); Neutrophils % (A) 78 %; Platelet Count 232 k/uL (150-450); RBC 4.51 m/uL (4.30-5.90); RDW 12.7 % (11.5-15.5); WBC 6.5 k/uL (3.8-10.6)
[2024-02-05] MEDS ORDERED: predniSONE 20 MG TAB PO SCH (09:00)
--- NOTE | 2024-02-05 09:23 | XR ---
EXAMINATION TYPE: XR chest 2V DATE OF EXAM: 02/05/2024 COMPARISON: 02/04/2024 HISTORY: 63 year-old male shortness of breath TECHNIQUE: PA and lateral views FINDINGS: Right-sided Thora vent catheter in place. Small right apical pneumothorax remains measuring 1.9 cm ve rsus 1.4 cm, previously. Right apical pleural parenchymal scarring unchanged. Heart normal size. Hype rinflation. No new consolidation or pleural effusion. IMPRESSION: COPD with right-sided Thora vent catheter in place and ongoing small right apical pneumothorax. Curre ntly 1.9 cm versus 1.4 cm, previously. [facility], , 02/05/2024 9:21 AM
--- NOTE | 2024-02-05 12:20 | XR ---
EXAMINATION TYPE: XR chest 1V portable DATE OF EXAM: 02/05/2024 Comparison: Earlier today Clinical History: 63-year-old male s/p aspiration ptx Findings: Right-sided Thoravent catheter remains in place. Progressive reexpansion of the right lung now with t race residual 9 mm right apical pneumothorax. Right apical pleural parenchymal scarring remains. Hear t normal size. Hyperinflation. No new consolidation or pleural effusion. Impression: Further reexpansion of the right lung with trace 9 mm residual right apical pneumothorax (versus 1.9 cm earlier today). Thoravent catheter in place. Background COPD. [facility], , 02/05/2024 12:18 PM
--- NOTE | 2024-02-05 13:25 | P.PN ---
Subjective Progress Note Date: 02/05/24 Patient is a 63-year-old male with past medical history significant for COPD/emphysema, current ongoing tobacco dependence, hyperlipidemia, hypothyroidism. Patient does have very severe COPD with an FEV1 24% of predicted. He has been evaluated by Dr. Hathaway in the pulmonary office in the past, however, no follow-up in the last year. No longer on steroid maintenance inhaler. Denies home O2. Continues to smoke 1/2 to 1 pack/day. Previously, tried quitting with Chantix. Of note, patient has history of previous small right sided pneumothorax noted on low-dose lung CT done September,; I believe this was managed conservatively. Repeat scans show resolution. Patient returns to the emergency department yesterday evening complaining of progressively worsening shortness of breath over the last week. Followed by acute shortness of breath over the last 12-24 hours. Denies fall or traumatic events. Denies infectious-like symptoms. Admits persistent dry cough. Denies chest pain. CBC and CMP on arrival unremarkable. Troponin less than 0.012. NT proBNP low. Chest x-ray demonstrated a moderate size right-sided pneumothorax, estimated at 30%. No tension-like features. Patient is status post ThoraVent insertion by ER provider. Follow-up chest xray showing adequate partial reexpansion of the right lung. Patient was admitted to the selective care unit. Currently on 3 L/min nasal cannula. SpO2 95%. No acute distress. Right chest ThoraVent hooked to suction at -20 cm H2O. Small intermittent airleak continues. Breath sounds are equal. The patient is seen today February 05, 2024 in follow-up on the selective care unit. He is currently sitting up in a chair at the bedside. Awake and alert in no acute distress. Today's chest x-ray reveals evidence of COPD with right sided Thora vent catheter in place and ongoing small right apical pneumothorax. Chest tube to Pleur-evac and wall suction. Positive leak. White count 6.5. Hemoglobin 14.7. Platelets 232. He remains on DuoNeb inhalations, Symbicort, prednisone taper. Lovenox for DVT prophylaxis. NicoDerm patch in place. Objective - Vital Signs Vital signs: Vital Signs Temp 98.0 F 02/05/24 10:50 Pulse 82 02/05/24 11:44 Resp 20 02/05/24 11:00 BP 146/84 02/05/24 10:50 Pulse Ox 96 02/05/24 12:00 FiO2 40 02/03/24 17:07 Intake & Output 02/04/24 02/05/24 02/05/24 18:59 06:59 18:59 Output Total 350 Balance -350 Weight 55 kg 45.4 kg Output: Urine 350 Other: Voiding Method Urinal - Exam GENERAL EXAM: Alert, thin 63-year-old male, up in a chair, on 2 liters nasal cannula, comfortable in no apparent distress. HEAD: Normocephalic and atraumatic EYES: Normal reaction of pupils, equal size. NOSE: Clear with pink turbinates. THROAT: No erythema or exudates. NECK: No masses, no JVD. CHEST: No chest wall deformity. No crepitus or subcutaneous emphysema LUNGS: Equal air entry with no crackles, wheeze, rhonchi or dullness. Right chest ThoraVent to suction at -20 cm H2O, small intermittent air leak noted. CVS: S1 and S2 normal with no audible murmur, regular rhythm. No extra heart sounds ABDOMEN: No hepatosplenomegaly, active bowel sounds, no guarding or rigidity. SPINE: No scoliosis or deformity SKIN: No rashes CENTRAL NERVOUS SYSTEM: No focal deficits, tone is normal in all 4 extremities. EXTREMITIES: There is no peripheral edema, clubbing, or cyanosis. Peripheral pulses are intact. - Labs CBC & Chem 7: 02/05/24 08:10 02/04/24 07:02 Labs: Abnormal Lab Results - Last 24 Hours (Table) 02/05/24 Range/Units 08:10 Lymphocytes # 0.9 L (1.0-4.8) k/uL Assessment and Plan Assessment: Acute spontaneous/secondary moderate-sized right-sided pneumothorax, status post ThoraVent insertion, repeat follow-up chest x-ray showing partial reexpansion of right lung Acute exacerbation of COPD/emphysema Acute hypoxemic respiratory failure, secondary to above Severe chronic obstructive pulmonary disease, with an FEV1 24% of predicted, FEV1/FVC ratio 32%, uncorrected DLCO 21% of predicted Chronic ongoing tobacco dependence, with over [id number] history History of small right-sided pneumothorax, noted on low-dose CT done September,; follow-up imaging showing complete resolution History of hypothyroidism History of hyperlipidemia History of migraines Chronic lower back pain Plan: The patient was seen and evaluated Chest x-ray, labs and medications reviewed Manual release of air/pneumothorax Follow-up chest x-ray shows improvement Continue Thora vent to wall suction Follow-up chest x-ray in a.m. Consult cardiothoracic surgery Increase use the incentive spirometer Educated regarding the importance of complete smoking cessation NicoDerm patch in place Continue bronchodilators, steroids We will continue to follow I have personally seen and examined the patient, performed the documentation and the assessment and plan as written. Number of minutes spent on the visit: 10 Dictation was produced using [employer] dictation software. Please excuse any grammatical, word or spelling errors..
--- NOTE | 2024-02-05 14:25 | P.PN ---
Subjective Progress Note Date: 02/05/24 Hospital course: 63-year-old male with past medical history of COPD, hypothyroidism, hyperlipidemia came to the ER on 02/03/2024 with a new onset shortness of breath. He was feeling short of breath from several weeks but has worsened significantly last several days. Initial lab work done in the ER showed WBC 8.2, hemoglobin 15.8, platelets 287, APTT 19.6, sodium 136, potassium 4.8, bicarb 27, BUN 23, creatinine 0.68, glucose 142. EKG done in the ER independently interpreted showed heart rate of 114, no ST segment elevation or depression seen, no T-wave inversions seen. Chest x-ray done independently interpreted in the ER showed moderate-sized right-sided pneumothorax, estimated 30%. Hyperinflation. Chest tube was placed in the right upper chest for pneumothorax in the ER. Admitted to internal medicine service for shortness of breath. Pulmonology consulted. Patient started on DuoNebs and IV Solu-Medrol. Continues to be on thora vent to wall suction. Repeat CXR show pneumothorax increasing from 1.4 cm to 1.[address] surgery is consulted. Subjective: Patient seen and examined at the bedside. Patient states his breathing is improving. Mild nonproductive cough. Currently on 3 L O2 via nasal cannula. All Systems reviewed and pertinent positives and negatives noted in HPI, all o ther symptoms are negative Objective: Vital signs reviewed. General: non toxic, no distress, appears at stated age, thin appearing Derm: no unusual rashes/lesions, warm Head: atraumatic, normocephalic, symmetric Eyes: EOMI, no lid lag, anicteric sclera, pupils equal round reactive to light ENT: Nose and ears atraumatic Neck: No cervical lymphadenopathy, trachea midline, supple Mouth: no lip lesion, mucus membranes moist Cardiovascular: S1S2 reg, no murmur, positive dorsalis pedis pulse bilateral, no edema Lungs: Mild bilateral wheezing with reduced breath sounds on the right apex., no rhonchi, no rales, no accessory muscle use Thoravent catheter placed in right upper chest, not draining any fluid Abdominal: soft, nontender to palpation, no guarding Ext: muscle strength 5 out of 5 in all 4 extremities grossly, no gross muscle atrophy, no contractures, Neuro: CN II-XI grossly intact, no gross focal neuro deficits Psych: Alert, oriented, appropriate affect Data reviewed today: Labs: WBC 6.5, hemoglobin 14.7 Images: Chest x-ray independently interpreted, right-sided Thora vent in place, slightly worsening right apical pneumothorax. Assessment and Plan: 63-year-old male with past medical history of COPD, hypothyroidism, hype rlipidemia came to the ER on 02/03/2024 with a new onset shortness of breath is admitted for evaluation of COPD exacerbation and pneumothorax. #Acute COPD exacerbation, resolved # Spontaneous right-sided pneumothorax #Severe emphysema #Acute hypoxic respiratory failure secondary to above #Metabolic alkalosis secondary to above S/p Thoravent catheter placed in right upper chest, not draining any fluid continuous pulse oximetry Continue with bronchodilators DuoNeb c/w p.o. prednisone 40 mg p.o. daily Repeat CXR in a.m show pneumothorax increasing from 1.4 cm to 1.[address] surgery is consulted. Discussed management with pulmonology, agree with cardiothoracic surgery consultation Repeat BMP in am -Continue to wean oxygen Chronic Medical Conditions #Hyperlidemia - Continue Atorvastatin 40 mg and ezetimibe 10 mg #Hypothyroidism - Continue home Synthroid 125 mcg daily #Chronic migraine Continue home sumatriptan 50 Mg #Chronic back pain Continue home Percocet 7.53 25 4 times daily as needed, monitor for sedation #Tobacco addiction -Continue nicotine patch - Counseled patient on smoking cessation F: P.o. E: Replete as needed N: Heart healthy diet E: None DVT ppx: Subq Lovenox Code status: Full code Anticipated discharge place: Pending clinical course Anticipated discharge time: Pending clinical course I have seen and evaluated the patient today. Discussed with the resident and agree with the residents finding and plan as documented in the resident's note. Changes highlighted in blue font. Objective - Vital Signs Vital signs: Vital Signs Temp 98.0 F 02/05/24 10:50 Pulse 82 02/05/24 11:44 Resp 20 02/05/24 11:00 BP 146/84 02/05/24 10:50 Pulse Ox 96 02/05/24 12:00 FiO2 40 02/03/24 17:07 Intake & Output 02/04/24 02/05/24 02/05/24 18:59 06:59 18:59 Output Total 350 Balance -350 Weight 55 kg 45.4 kg Output: Urine 350 Other: Voiding Method Urinal - Labs CBC & Chem 7: 02/05/24 08:10 02/04/24 07:02 Labs: Abnormal Lab Results - Last 24 Hours (Table) 02/05/24 Range/Units 08:10 Lymphocytes # 0.9 L (1.0-4.8) k/uL
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
[2024-02-06] MEDS: KETOROLAC 15 MG/ML 1 ML VIAL IVP SCH (08:17)
--- NOTE | 2024-02-06 09:02 | XR ---
EXAMINATION TYPE: XR chest 2V DATE OF EXAM: 02/06/2024 COMPARISON: 02/05/2024 HISTORY: 63-year-old male follow-up pneumothorax TECHNIQUE: Frontal and lateral views FINDINGS: Heart normal size. Aorta and pulmonary vasculature within normal limits. Hyperinflation. Right-sided Thoravent catheter in place. Right apical pneumothorax measures 1 cm versus 9 mm, previously. Right a pical pleural parenchymal scarring. IMPRESSION: Right-sided Thoravent catheter in place. Fairly similar small right apical pneumothorax at 1 cm versu s 9 mm, previously. [facility], , 02/06/2024 9:00 AM
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
[2024-02-06 11:25] LABS: African American GFR (CKD) >90 (>60 ml/min/1.73 sqM); Anion Gap 3 mmol/L; Blood Urea Nitrogen 23 mg/dL (9-20); Carbon Dioxide 31 mmol/L (22-30); Chloride 102 mmol/L (98-107); Glucose 119 mg/dL (74-99); Non-African American GFR(CKD) >90 (>60 ml/min/1.73 sqM); Potassium 4.3 mmol/L (3.5-5.1); Sodium 136 mmol/L (137-145)
--- NOTE | 2024-02-06 12:44 | P.PN ---
Subjective Progress Note Date: 02/06/24 Patient is a 63-year-old male with past medical history significant for COPD/emphysema, current ongoing tobacco dependence, hyperlipidemia, hypothyroidism. Patient does have very severe COPD with an FEV1 24% of predicted. He has been evaluated by Dr. Hathaway in the pulmonary office in the past, however, no follow-up in the last year. No longer on steroid maintenance inhaler. Denies home O2. Continues to smoke 1/2 to 1 pack/day. Previously, tried quitting with Chantix. Of note, patient has history of previous small right sided pneumothorax noted on low-dose lung CT done September,; I believe this was managed conservatively. Repeat scans show resolution. Patient returns to the emergency department yesterday evening complaining of progressively worsening shortness of breath over the last week. Followed by acute shortness of breath over the last 12-24 hours. Denies fall or traumatic events. Denies infectious-like symptoms. Admits persistent dry cough. Denies chest pain. CBC and CMP on arrival unremarkable. Troponin less than 0.012. NT proBNP low. Chest x-ray demonstrated a moderate size right-sided pneumothorax, estimated at 30%. No tension-like features. Patient is status post ThoraVent insertion by ER provider. Follow-up chest xray showing adequate partial reexpansion of the right lung. Patient was admitted to the selective care unit. Currently on 3 L/min nasal cannula. SpO2 95%. No acute distress. Right chest ThoraVent hooked to suction at -20 cm H2O. Small intermittent airleak continues. Breath sounds are equal. The patient is seen today February 05, 2024 in follow-up on the selective care unit. He is currently sitting up in a chair at the bedside. Awake and alert in no acute distress. Today's chest x-ray reveals evidence of COPD with right sided Thora vent catheter in place and ongoing small right apical pneumothorax. Chest tube to Pleur-evac and wall suction. Positive leak. White count 6.5. Hemoglobin 14.7. Platelets 232. He remains on DuoNeb inhalations, Symbicort, prednisone taper. Lovenox for DVT prophylaxis. NicoDerm patch in place. The patient is seen today February 06, 2024 in follow-up on the selective care unit. He is awake and alert in no acute distress. Maintaining good O2 saturations in the 90s on room air. Right sided Thora vent remains in place. There is a noted leak mostly with coughing. Continued on low continuous wall suction at -20 cm of water. Chest x-ray is revealing a tiny 1 cm right apical pneumothorax. Sodium 136. Potassium 4.3. Bicarb 31. BUN 23. Creatinine 0.61. Glucose 119., Prednisone taper. Lovenox for DVT prophylaxis. NicoDerm patch in place. Objective - Vital Signs Vital signs: Vital Signs Temp 97.8 F 02/06/24 11:19 Pulse 90 02/06/24 11:48 Resp 20 02/06/24 11:19 BP 160/92 02/06/24 11:19 Pulse Ox 96 02/06/24 11:19 FiO2 40 02/03/24 17:07 Intake & Output 02/05/24 02/06/24 02/06/24 18:59 06:59 18:59 Intake Total 550 150 Output Total 0 0 Balance 550 150 Weight 42 kg Intake: IV 10 0.9 10 Oral 540 150 Output: Chest Tube Drainage 0 0 Thora-Vent Right Anterior 0 0 Chest Other: Voiding Method Urinal Toilet Urinal # Voids 1 - Exam GENERAL EXAM: Alert, thin 63-year-old male, on 2 liters nasal cannula, in no apparent distress. HEAD: Normocephalic and atraumatic EYES: Normal reaction of pupils, equal size. NOSE: Clear with pink turbinates. THROAT: No erythema or exudates. NECK: No masses, no JVD. CHEST: No chest wall deformity. No crepitus or subcutaneous emphysema LUNGS: Equal air entry. Right chest ThoraVent to low continuous suction at -20 cm H2O, small intermittent air leak noted. CVS: S1 and S2 normal with no audible murmur, regular rhythm. No extra heart sounds ABDOMEN: No hepatosplenomegaly, active bowel sounds, no guarding or rigidity. SPINE: No scoliosis or deformity SKIN: No rashes CENTRAL NERVOUS SYSTEM: No focal deficits, tone is normal in all 4 extremities. EXTREMITIES: There is no peripheral edema, clubbing, or cyanosis. Peripheral pulses are intact. - Labs CBC & Chem 7: 02/05/24 08:10 02/06/24 10:25 Labs: Abnormal Lab Results - Last 24 Hours (Table) 02/06/24 Range/Units 10:25 Sodium 136 L (137-145) mmol/L Carbon Dioxide 31 H (22-30) mmol/L BUN 23 H (9-20) mg/dL Creatinine 0.61 L (0.66-1.25) mg/dL Glucose 119 H (74-99) mg/dL Assessment and Plan Assessment: Acute spontaneous/secondary moderate-sized right-sided pneumothorax, status post ThoraVent insertion, follow-up chest x-ray showing near complete reexpansion of right lung Acute exacerbation of COPD/emphysema Acute hypoxemic respiratory failure, secondary to above Severe chronic obstructive pulmonary disease, with an FEV1 24% of predicted, FEV1/FVC ratio 32%, uncorrected DLCO 21% of predicted Chronic ongoing tobacco dependence, with over 91-[id number]-nogl history History of small right-sided pneumothorax, noted on low-dose CT done September,; follow-up imaging showing complete resolution History of hypothyroidism History of hyperlipidemia History of migraines Chronic lower back pain Plan: The patient was seen and evaluated Chest x-ray, labs and medications reviewed Small leak noted with coughing Continue ThoraVent to low continuous wall suction Follow-up chest x-ray in a.m. Increase use the incentive spirometer Continue bronchodilators, steroids CT services following We will continue to follow I have personally seen and examined the patient, performed the documentation and the assessment and plan as written. Number of minutes spent on the visit: 10 Dictation was produced using [employer] dictation software. Please excuse any grammatical, word or spelling errors.
--- NOTE | 2024-02-06 16:01 | P.PN ---
Subjective Progress Note Date: 02/06/24 Hospital course: 63-year-old male with past medical history of COPD, hypothyroidism, hyperlipidemia came to the ER on 02/03/2024 with a new onset shortness of breath. He was feeling short of breath from several weeks but has worsened significantly last several days. Initial lab work done in the ER showed WBC 8.2, hemoglobin 15.8, platelets 287, APTT 19.6, sodium 136, potassium 4.8, bicarb 27, BUN 23, creatinine 0.68, glucose 142. EKG done in the ER independently interpreted showed heart rate of 114, no ST segment elevation or depression seen, no T-wave inversions seen. Chest x-ray done independently interpreted in the ER showed moderate-sized right-sided pneumothorax, estimated 30%. Hyperinflation. Chest tube was placed in the right upper chest for pneumothorax in the ER. Admitted to internal medicine service for shortness of breath. Pulmonology consulted. Patient started on DuoNebs and IV Solu-Medrol. Continues to be on thora vent to wall suction. Repeat CXR show pneumothorax increasing from 1.4 cm to 1.[address] surgery is consulted. Repeat chest x-ray shows mildly improved pneumothorax. Subjective: Patient seen and examined at the bedside. Patient states his breathing is imp roving. Mild nonproductive cough. Currently on 3 L O2 via nasal cannula. All Systems reviewed and pertinent positives and negatives noted in HPI, all other symptoms are negative Objective: Vital signs reviewed. General: non toxic, no distress, appears at stated age, thin appearing Derm: no unusual rashes/lesions, warm Head: atraumatic, normocephalic, symmetric Eyes: EOMI, no lid lag, anicteric sclera, pupils equal round reactive to light ENT: Nose and ears atraumatic Neck: No cervical lymphadenopathy, trachea midline, supple Mouth: no lip lesion, mucus membranes moist Cardiovascular: S1S2 reg, no murmur, positive dorsalis pedis pulse bilateral, no edema Lungs: Mild bilateral wheezing with reduced breath sounds on the right apex., no rhonchi, no rales, no accessory muscle use Thoravent catheter placed in right upper chest, not draining any fluid Abdominal: soft, nontender to palpation, no guarding Ext: muscle strength 5 out of 5 in all 4 extremities grossly, no gross muscle atrophy, no contractures, Neuro: CN II-XI grossly intact, no gross focal neuro deficits Psych: Alert, oriented, appropriate affect Data reviewed today: Labs: Sodium 136, potassium 4.3, chloride 112, bicarb 31, BUN 23, creatinine 0.61 Images: Chest x-ray independently interpreted, right-sided Thora vent in place, slightly improving right apical pneumothorax. Assessment and Plan: 63-year-old male with past medical history of COPD, hypothyroidism, hyperlipidemia came to the ER on 02/03/2024 with a new onset shortness of breath is admitted for evaluation of COPD exacerbation and pneumothorax. #Acute COPD exacerbation, resolved # Spontaneous right-sided pneumothorax #Severe emphysema #Acute hypoxic respiratory failure secondary to above #Metabolic alkalosis secondary to above Continue with right Thora vent catheter to low continuous wall suction. continuous pulse oximetry Continue with bronchodilators and DuoNeb c/w p.o. prednisone [address] surgery is consulted. Note reviewed, continue conservative management, pain control with IV Toradol 50 mg every 6 hours Pulmonology consulted. Note reviewed, continue as above Continue to wean oxygen Chronic Medical Conditions #Hyperlidemia - Continue Atorvastatin 40 mg and ezetimibe 10 mg #Hypothyroidism - Continue home Synthroid 125 mcg daily #Chronic migraine Continue home sumatriptan 50 Mg #Chronic back pain Continue home Percocet 7.53 25 4 times daily as needed, monitor for sedation #Tobacco addiction -Continue nicotine patch - Counseled patient on smoking cessation F: P.o. E: Replete as needed N: Heart healthy diet E: None DVT ppx: Subq Lovenox Code status: Full code Anticipated discharge place: Pending clinical course Anticipated discharge time: Pending clinical course I have seen and evaluated the patient today. Discussed with the resident and agree with the residents finding and plan as documented in the resident's note. Changes highlighted in blue font. Objective - Vital Signs Vital signs: Vital Signs Temp 97.7 F 02/06/24 15:48 Pulse 88 02/06/24 15:52 Resp 20 02/06/24 15:48 BP 163/95 02/06/24 15:48 Pulse Ox 98 02/06/24 15:48 FiO2 40 02/03/24 17:07 Intake & Output 02/05/24 02/06/24 02/06/24 18:59 06:59 18:59 Intake Total 550 265 Output Total 0 0 Balance 550 265 Weight 42 kg Intake: IV 10 0.9 10 Oral 540 265 Output: Chest Tube Drainage 0 0 Thora-Vent Right Anterior 0 0 Chest Other: Voiding Method Urinal Toilet Urinal # Voids 1 2 - Labs CBC & Chem 7: 02/05/24 08:10 02/06/24 10:25 Labs: Abnormal Lab Results - Last 24 Hours (Table) 02/06/24 Range/Units 10:25 Sodium 136 L (137-145) mmol/L Carbon Dioxide 31 H (22-30) mmol/L BUN 23 H (9-20) mg/dL Creatinine 0.61 L (0.66-1.25) mg/dL Glucose 119 H (74-99) mg/dL
[2024-02-07] MEDS: IPRATROPIUM-ALBUTEROL 3 ML NEB INHALATION SCH (08:11)
[2024-02-07 08:30] LABS: African American GFR (CKD) >90 (>60 ml/min/1.73 sqM); Anion Gap 6 mmol/L; Blood Urea Nitrogen 26 mg/dL (9-20); Calcium 9.3 mg/dL (8.4-10.2); Carbon Dioxide 32 mmol/L (22-30); Chloride 99 mmol/L (98-107); Glucose 85 mg/dL (74-99); Non-African American GFR(CKD) >90 (>60 ml/min/1.73 sqM); Potassium 4.3 mmol/L (3.5-5.1); Sodium 137 mmol/L (137-145)
--- NOTE | 2024-02-07 09:28 | XR ---
EXAMINATION TYPE: XR chest 1V portable DATE OF EXAM: 02/07/2024 Comparison: 02/06/2024 Clinical History: 63-year-old male follow-up pneumothorax Findings: Right-sided Thoravent catheter in place. Trace 7 mm right apical pneumothorax remains versus 1 cm pre viously. Some subcutaneous emphysema in the right axilla is unchanged. Right apical pleural parenchym al scarring. Heart normal size. Hyperinflation. No pleural effusion. Impression: 1. Right-sided Thoravent catheter with trace 7 mm residual right apical pneumothorax versus 1 cm, pre viously. 2. Background COPD and right apical pleural-parenchymal scarring. [facility], , 02/07/2024 8:50 AM
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
--- NOTE | 2024-02-07 12:17 | P.PN ---
Subjective Progress Note Date: 02/07/24 Hospital course: 63-year-old male with past medical history of COPD, hypothyroidism, hyperlipidemia came to the ER on 02/03/2024 with a new onset shortness of breath. He was feeling short of breath from several weeks but has worsened significantly last several days. Initial lab work done in the ER showed WBC 8.2, hemoglobin 15.8, platelets 287, APTT 19.6, sodium 136, potassium 4.8, bicarb 27, BUN 23, creatinine 0.68, glucose 142. EKG done in the ER independently interpreted showed heart rate of 114, no ST segment elevation or depression seen, no T-wave inversions seen. Chest x-ray done independently interpreted in the ER showed moderate-sized right-sided pneumothorax, estimated 30%. Hyperinflation. Chest tube was placed in the right upper chest for pneumothorax in the ER. Admitted to internal medicine service for shortness of breath. Pulmonology consulted. Patient started on DuoNebs and IV Solu-Medrol. Continues to be on thora vent to wall suction. Repeat CXR show pneumothorax increasing from 1.4 cm to 1.[address] surgery is consulted. Repeat chest x-ray shows mildly improved pneumothorax. Subjective: Patient seen and examined at the bedside. Patient states his breathing is imp roving. Mild nonproductive cough. Currently on room air. All Systems reviewed and pertinent positives and negatives noted in HPI, all other symptoms are negative Objective: Vital signs reviewed. General: non toxic, no distress, appears at stated age, thin appearing Derm: no unusual rashes/lesions, warm Head: atraumatic, normocephalic, symmetric Eyes: EOMI, no lid lag, anicteric sclera, pupils equal round reactive to light ENT: Nose and ears atraumatic Neck: No cervical lymphadenopathy, trachea midline, supple Mouth: no lip lesion, mucus membranes moist Cardiovascular: S1S2 reg, no murmur, positive dorsalis pedis pulse bilateral, no edema Lungs: Mild bilateral wheezing with reduced breath sounds on the right apex., no rhonchi, no rales, no accessory muscle use Thoravent catheter placed in right upper chest, not draining any fluid Abdominal: soft, nontender to palpation, no guarding Ext: muscle strength 5 out of 5 in all 4 extremities grossly, no gross muscle atrophy, no contractures, Neuro: CN II-XI grossly intact, no gross focal neuro deficits Psych: Alert, oriented, appropriate affect Data reviewed today: Labs: Sodium 137, potassium 4.3, chloride 99, bicarb 32, BUN 26, creatinine 0.61, calcium 9.3 Images: Chest x-ray independently interpreted, right-sided Thora vent in place, slightly improving right apical pneumothorax. Assessment and Plan: 63-year-old male with past medical history of COPD, hypothyroidism, hyperlipidemia came to the ER on 02/03/2024 with a new onset shortness of breath is admitted for evaluation of COPD exacerbation and pneumothorax. #Acute COPD exacerbation, resolved # Spontaneous right-sided pneumothorax #Severe emphysema #Acute hypoxic respiratory failure secondary to above #Metabolic alkalosis secondary to above Continue with right Thora vent catheter to low continuous wall suction. continuous pulse oximetry Continue with bronchodilators and DuoNeb c/w p.o. prednisone [address] surgery is consulted. Note reviewed, continue conservative management, pain control with IV Toradol 50 mg every 6 hours Pulmonology consulted. Note reviewed, continue as above, small leak noted with coughing Continue to wean oxygen Chronic Medical Conditions #Hyperlidemia - Continue Atorvastatin 40 mg and ezetimibe 10 mg #Hypothyroidism - Continue home Synthroid 125 mcg daily #Chronic migraine Continue home sumatriptan 50 Mg #Chronic back pain Continue home Percocet 7.53 25 4 times daily as needed, monitor for sedation #Tobacco addiction -Continue nicotine patch - Counseled patient on smoking cessation F: P.o. E: Replete as needed N: Heart healthy diet E: None DVT ppx: Subq Lovenox Code status: Full code Anticipated discharge place: Pending clinical course Anticipated discharge time: Pending clinical course I have seen and evaluated the patient today. Discussed with the resident and agree with the residents finding and plan as documented in the resident's note. Changes highlighted in blue font. Objective - Vital Signs Vital signs: Vital Signs Temp 97.4 F L 02/07/24 11:14 Pulse 85 02/07/24 11:41 Resp 18 02/07/24 11:41 BP 149/101 02/07/24 11:41 Pulse Ox 95 02/07/24 11:41 FiO2 40 02/03/24 17:07 Intake & Output 02/06/24 02/07/24 02/07/24 18:59 06:59 18:59 Intake Total 415 236 Output Total 0 0 0 Balance 415 0 236 Weight 46.7 kg Intake: Oral 415 236 Output: Chest Tube Drainage 0 0 0 Thora-Vent Right Anterior 0 0 0 Chest Other: Voiding Method Toilet Toilet Toilet Urinal Urinal Urinal # Voids 2 3 # Bowel Movements 1 - Labs CBC & Chem 7: 02/05/24 08:10 02/07/24 07:17 Labs: Abnormal Lab Results - Last 24 Hours (Table) 02/07/24 Range/Units 07:17 Carbon Dioxide 32 H (22-30) mmol/L BUN 26 H (9-20) mg/dL Creatinine 0.61 L (0.66-1.25) mg/dL
--- NOTE | 2024-02-07 14:44 | P.PN ---
Subjective Progress Note Date: 02/07/24 Patient is a 63-year-old male with past medical history significant for COPD/emphysema, current ongoing tobacco dependence, hyperlipidemia, hypothyroidism. Patient does have very severe COPD with an FEV1 24% of predicted. He has been evaluated by Dr. Hathaway in the pulmonary office in the past, however, no follow-up in the last year. No longer on steroid maintenance inhaler. Denies home O2. Continues to smoke 1/2 to 1 pack/day. Previously, tried quitting with Chantix. Of note, patient has history of previous small right sided pneumothorax noted on low-dose lung CT done September,; I believe this was managed conservatively. Repeat scans show resolution. Patient returns to the emergency department yesterday evening complaining of progressively worsening shortness of breath over the last week. Followed by acute shortness of breath over the last 12-24 hours. Denies fall or traumatic events. Denies infectious-like symptoms. Admits persistent dry cough. Denies chest pain. CBC and CMP on arrival unremarkable. Troponin less than 0.012. NT proBNP low. Chest x-ray demonstrated a moderate size right-sided pneumothorax, estimated at 30%. No tension-like features. Patient is status post ThoraVent insertion by ER provider. Follow-up chest xray showing adequate partial reexpansion of the right lung. Patient was admitted to the selective care unit. Currently on 3 L/min nasal cannula. SpO2 95%. No acute distress. Right chest ThoraVent hooked to suction at -20 cm H2O. Small intermittent airleak continues. Breath sounds are equal. The patient is seen today February 05, 2024 in follow-up on the selective care unit. He is currently sitting up in a chair at the bedside. Awake and alert in no acute distress. Today's chest x-ray reveals evidence of COPD with right sided Thora vent catheter in place and ongoing small right apical pneumothorax. Chest tube to Pleur-evac and wall suction. Positive leak. White count 6.5. Hemoglobin 14.7. Platelets 232. He remains on DuoNeb inhalations, Symbicort, prednisone taper. Lovenox for DVT prophylaxis. NicoDerm patch in place. The patient is seen today February 06, 2024 in follow-up on the selective care unit. He is awake and alert in no acute distress. Maintaining good O2 saturations in the 90s on room air. Right sided Thora vent remains in place. There is a noted leak mostly with coughing. Continued on low continuous wall suction at -20 cm of water. Chest x-ray is revealing a tiny 1 cm right apical pneumothorax. Sodium 136. Potassium 4.3. Bicarb 31. BUN 23. Creatinine 0.61. Glucose 119., Prednisone taper. Lovenox for DVT prophylaxis. NicoDerm patch in place. The patient is seen today February 07, 2024 in follow-up on the selective care unit. He is currently sitting up in a chair. Awake and alert in no acute distress. Thora vent remains in place to the right chest to Pleur-evac and low continuous wall suction. He continues with a small leak mostly with coughing. Chest x-ray reveals a trace 7 mm right apical pneumothorax. He continues to work well with the incentive spirometer he is continued on DuoNeb inhalations, Symbicort, prednisone taper. Lovenox for DVT prophylaxis. NicoDerm patch remains in place. Sodium 137. Potassium 4.3. Bicarb 32. BUN 26. Creatinine 0.61. Glucose 85. Objective - Vital Signs Vital signs: Vital Signs Temp 97.4 F L 02/07/24 11:14 Pulse 85 02/07/24 14:06 Resp 18 02/07/24 14:06 BP 149/101 02/07/24 11:41 Pulse Ox 95 02/07/24 11:41 FiO2 40 02/03/24 17:07 Intake & Output 02/06/24 02/07/24 02/07/24 18:59 06:59 18:59 Intake Total 415 356 Output Total 0 0 0 Balance 415 0 356 Weight 46.7 kg Intake: Oral 415 356 Output: Chest Tube Drainage 0 0 0 Thora-Vent Right Anterior 0 0 0 Chest Other: Voiding Method Toilet Toilet Toilet Urinal Urinal Urinal # Voids 2 3 # Bowel Movements 1 - Exam GENERAL EXAM: Alert, thin 63-year-old male, up in a chair, on room air, in no apparent distress. HEAD: Normocephalic and atraumatic EYES: Normal reaction of pupils, equal size. NOSE: Clear with pink turbinates. THROAT: No erythema or exudates. NECK: No masses, no JVD. CHEST: No chest wall deformity. No crepitus or subcutaneous emphysema LUNGS: Equal air entry. Right chest ThoraVent to low continuous suction at -20 cm H2O, small intermittent air leak noted. CVS: S1 and S2 normal with no audible murmur, regular rhythm. No extra heart sounds ABDOMEN: No hepatosplenomegaly, active bowel sounds, no guarding or rigidity. SPINE: No scoliosis or deformity SKIN: No rashes CENTRAL NERVOUS SYSTEM: No focal deficits, tone is normal in all 4 extremities. EXTREMITIES: There is no peripheral edema, clubbing, or cyanosis. Peripheral pulses are intact. - Labs CBC & Chem 7: 02/05/24 08:10 02/07/24 07:17 Labs: Abnormal Lab Results - Last 24 Hours (Table) 02/07/24 Range/Units 07:17 Carbon Dioxide 32 H (22-30) mmol/L BUN 26 H (9-20) mg/dL Creatinine 0.61 L (0.66-1.25) mg/dL Assessment and Plan Assessment: Acute spontaneous/secondary moderate-sized right-sided pneumothorax, status post ThoraVent insertion, follow-up chest x-ray showing near complete reexpansion of right lung. There is a trace 7 mm residual right apical pneumothorax Acute exacerbation of COPD/emphysema Acute hypoxemic respiratory failure, secondary to above Severe chronic obstructive pulmonary disease, with an FEV1 24% of predicted, FEV1/FVC ratio 32%, uncorrected DLCO 21% of predicted Chronic ongoing tobacco dependence, with over 40-[id number] history History of small right-sided pneumothorax, noted on low-dose CT done September,; follow-up imaging showing complete resolution History of hypothyroidism History of hyperlipidemia History of migraines Chronic lower back pain Plan: The patient was seen and evaluated Chest x-ray, labs and medications reviewed Small leak noted with coughing ThoraVent remains on low continuous wall suction Follow-up chest x-ray in a.m. Continue the incentive spirometer Continue bronchodilators, steroids We will continue to follow I have personally seen and examined the patient, performed the documentation and the assessment and plan as written. Number of minutes spent on the visit: 10 Dictation was produced using [employer] software. Please excuse any grammatical, word or spelling errors.
--- NOTE | 2024-02-08 07:31 | XR ---
EXAMINATION TYPE: XR chest 1V portable DATE OF EXAM: 02/08/2024 5:43 AM CLINICAL INDICATION: Male, 63 years old with history of Right-sided pneumothorax; H COMPARISON: Chest radiographs from 02/07/2024 TECHNIQUE: XR chest 1V portable Frontal view of the chest. FINDINGS: Lungs/Pleura: Small apical right pneumothorax. Thoracotomy device in place. There is no evidence of p leural effusion, focal consolidation, or left pneumothorax. Pulmonary vascularity: Unremarkable. Heart/mediastinum: Cardiomediastinal silhouette is unremarkable. Musculoskeletal: No acute osseous pathology. IMPRESSION: Right thoracotomy tube with a small apical pneumothorax. Findings similar to prior. [facility], , 02/08/2024 7:28 AM
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
[2024-02-08 11:13] LABS: Glucose,Whole Blood 94 mg/dL (70-110)
--- NOTE | 2024-02-08 12:57 | P.PN ---
Subjective Progress Note Date: 02/08/24 Hospital course: 63-year-old male with past medical history of COPD, hypothyroidism, hyperlipidemia came to the ER on 02/03/2024 with a new onset shortness of breath. He was feeling short of breath from several weeks but has worsened significantly last several days. Initial lab work done in the ER showed WBC 8.2, hemoglobin 15.8, platelets 287, APTT 19.6, sodium 136, potassium 4.8, bicarb 27, BUN 23, creatinine 0.68, glucose 142. EKG done in the ER independently interpreted showed heart rate of 114, no ST segment elevation or depression seen, no T-wave inversions seen. Chest x-ray done independently interpreted in the ER showed moderate-sized right-sided pneumothorax, estimated 30%. Hyperinflation. Chest tube was placed in the right upper chest for pneumothorax in the ER. Admitted to internal medicine service for shortness of breath. Pulmonology consulted. Patient started on DuoNebs and IV Solu-Medrol. Continues to be on thora vent to wall suction. Repeat CXR show pneumothorax increasing from 1.4 cm to 1.[address] surgery is consulted. Repeat chest x-ray shows mildly improved pneumothorax. Subjective: Patient seen and examined at the bedside. Patient states his breathing is imp roving. Mild nonproductive cough. Currently on room air. All Systems reviewed and pertinent positives and negatives noted in HPI, all other symptoms are negative Objective: Vital signs reviewed. General: non toxic, no distress, appears at stated age, thin appearing Derm: no unusual rashes/lesions, warm Head: atraumatic, normocephalic, symmetric Eyes: EOMI, no lid lag, anicteric sclera, pupils equal round reactive to light ENT: Nose and ears atraumatic Neck: No cervical lymphadenopathy, trachea midline, supple Mouth: no lip lesion, mucus membranes moist Cardiovascular: S1S2 reg, no murmur, positive dorsalis pedis pulse bilateral, no edema Lungs: Mild bilateral wheezing with reduced breath sounds on the right apex., no rhonchi, no rales, no accessory muscle use Thoravent catheter placed in right upper chest, not draining any fluid Abdominal: soft, nontender to palpation, no guarding Ext: muscle strength 5 out of 5 in all 4 extremities grossly, no gross muscle atrophy, no contractures, Neuro: CN II-XI grossly intact, no gross focal neuro deficits Psych: Alert, oriented, appropriate affect Data reviewed today: Labs:No new labs Images: Chest x-ray independently interpreted, right-sided Thora vent in place, slightly improving right apical pneumothorax. Assessment and Plan: 63-year-old male with past medical history of COPD, hypothyroidism, hyperlipidemia came to the ER on 02/03/2024 with a new onset shortness of breath is admitted for evaluation of COPD exacerbation and pneumothorax. #Acute COPD exacerbation, resolved # Spontaneous right-sided pneumothorax #Severe emphysema #Acute hypoxic respiratory failure secondary to above #Metabolic alkalosis secondary to above Continue with right Thora vent catheter to low continuous wall suction. continuous pulse oximetry Continue with bronchodilators and DuoNeb c/w p.o. prednisone [address] surgery is consulted. Note reviewed, continue conservative management, pain control with IV Toradol 50 mg every 6 hours Thoravent to wall suction is d/c; started on thoravent to waterseal Encourage use of incentive spirometry Pulmonology consulted. Note reviewed, continue as above, small leak noted with coughing Continue to wean oxygen Chronic Medical Conditions #Hyperlidemia - Continue Atorvastatin 40 mg and ezetimibe 10 mg #Hypothyroidism - Continue home Synthroid 125 mcg daily #Chronic migraine Continue home sumatriptan 50 Mg #Chronic back pain Continue home Percocet 7.53 25 4 times daily as needed, monitor for sedation #Tobacco addiction -Continue nicotine patch - Counseled patient on smoking cessation F: P.o. E: Replete as needed N: Heart healthy diet E: None DVT ppx: Subq Lovenox Code status: Full code Anticipated discharge place: Pending clinical course Anticipated discharge time: Pending clinical course I have seen and evaluated the patient today. Discussed with the resident and agree with the residents finding and plan as documented in the resident's note. Changes highlighted in blue font. Objective - Vital Signs Vital signs: Vital Signs Temp 97.8 F 02/08/24 12:00 Pulse 97 02/08/24 12:00 Resp 18 02/08/24 12:00 BP 163/89 02/08/24 12:00 Pulse Ox 96 02/08/24 12:00 FiO2 40 02/03/24 17:07 Intake & Output 02/07/24 02/08/24 02/08/24 18:59 06:59 18:59 Intake Total 592 120 Output Total 0 0 0 Balance 592 0 120 Intake: Oral 592 120 Output: Chest Tube Drainage 0 0 0 Thora-Vent Right Anterior 0 0 0 Chest Other: Voiding Method Toilet Toilet Toilet Urinal Urinal Urinal # Voids 2 2 - Labs CBC & Chem 7: 02/05/24 08:10 02/07/24 07:17
--- NOTE | 2024-02-08 13:46 | P.PN ---
Subjective Progress Note Date: 02/08/24 Principal diagnosis: Acute spontaneous right-sided pneumothorax Patient is a 63-year-old male with past medical history significant for COPD/emphysema, current ongoing tobacco dependence, hyperlipidemia, hypothyroidism. Patient does have very severe COPD with an FEV1 24% of pr edicted. He has been evaluated by Dr. Hathaway in the pulmonary office in the past, however, no follow-up in the last year. No longer on steroid maintenance inhaler. Denies home O2. Continues to smoke 1/2 to 1 pack/day. Previously, tried quitting with Chantix. Of note, patient has history of previous small right sided pneumothorax noted on low-dose lung CT done September,; I believe this was managed conservatively. Repeat scans show resolution. Patient returns to the emergency department yesterday evening complaining of progressively worsening shortness of breath over the last week. Followed by acute shortness of breath over the last 12-24 hours. Denies fall or traumatic events. Denies infectious-like symptoms. Admits persistent dry cough. Denies chest pain. CBC and CMP on arrival unremarkable. Troponin less than 0.012. NT proBNP low. Chest x-ray demonstrated a moderate size right-sided pneumothorax, estimated at 30%. No tension-like features. Patient is status post ThoraVent insertion by ER provider. Follow-up chest xray showing adequate partial reexpansion of the right lung. Patient was admitted to the selective care unit. Currently on 3 L/min nasal cannula. SpO2 95%. No acute distress. Right chest ThoraVent hooked to suction at -20 cm H2O. Small intermittent airleak continues. Breath sounds are equal. The patient is seen today February 05, 2024 in follow-up on the selective care unit. He is currently sitting up in a chair at the bedside. Awake and alert in no acute distress. Today's chest x-ray reveals evidence of COPD with right sided Thora vent catheter in place and ongoing small right apical pneumothorax. Chest tube to Pleur-evac and wall suction. Positive leak. White count 6.5. Hemoglobin 14.7. Platelets 232. He remains on DuoNeb inhalations, Symbicort, prednisone taper. Lovenox for DVT prophylaxis. NicoDerm patch in place. The patient is seen today February 06, 2024 in follow-up on the selective care unit. He is awake and alert in no acute distress. Maintaining good O2 saturations in the 90s on room air. Right sided Thora vent remains in place. There is a noted leak mostly with coughing. Continued on low continuous wall suction at -20 cm of water. Chest x-ray is revealing a tiny 1 cm right apical pneumothorax. Sodium 136. Potassium 4.3. Bicarb 31. BUN 23. Creatinine 0.61. Glucose 119., Prednisone taper. Lovenox for DVT prophylaxis. NicoDerm patch in place. The patient is seen today February 07, 2024 in follow-up on the selective care unit. He is currently sitting up in a chair. Awake and alert in no acute distress. Thora vent remains in place to the right chest to Pleur-evac and low continuous wall suction. He continues with a small leak mostly with coughing. Chest x-ray reveals a trace 7 mm right apical pneumothorax. He continues to work well with the incentive spirometer he is continued on DuoNeb inhalations, Symbicort, prednisone taper. Lovenox for DVT prophylaxis. NicoDerm patch remains in place. Sodium 137. Potassium 4.3. Bicarb 32. BUN 26. Creatinine 0.61. Glucose 85. Patient was seen today on 02/08/2024, patient is doing well, patient is now off wall suction, continues to have a small air leak, chest x-ray this morning showed no evidence of any significant pneumothorax. He was seen by thoracic surgery, and recommended that he goes off wall suction. Clinically the patient is feeling well, not in any distress. Again he is now on waterseal. Objective - Vital Signs Vital signs: Vital Signs Temp 97.8 F 02/08/24 12:00 Pulse 97 02/08/24 12:00 Resp 18 02/08/24 12:00 BP 163/89 02/08/24 12:00 Pulse Ox 96 02/08/24 12:00 FiO2 40 02/03/24 17:07 Intake & Output 02/07/24 02/08/24 02/08/24 18:59 06:59 18:59 Intake Total 592 342 Output Total 0 0 0 Balance 592 0 342 Intake: Oral 592 342 Output: Chest Tube Drainage 0 0 0 Thora-Vent Right Anterior 0 0 0 Chest Other: Voiding Method Toilet Toilet Toilet Urinal Urinal Urinal # Voids 2 2 3 - Exam CONSTITUTIONAL: 63-year-old white male in no distress RESPIRATORY: Diminished breath sound bilaterally no rhonchi no wheezes right sided Thora vent is noted CARDIOVASCULAR: Distant S1-S2, no S3 gallop GASTROINTESTINAL: Soft nontender No rebound no guarding INTEGUMENTARY: Skin is warm and dry with no clubbing or cyanosis present. NEUROLOGIC: Cranial nerves II through XII intact MUSKULOSKELETAL: No deformities and no limitation range of motion PSYCHIATRIC: Normal mood affect and no mental status examination INVASIVE LINES AND TUBES: Right chest Thoravent present and connected to Pleur- evac with continuous low wall suction, intermittent airleak with coughing, slightly improved today. No drainage present. - Labs CBC & Chem 7: 02/05/24 08:10 02/07/24 07:17 Assessment and Plan Assessment: Impression: Acute spontaneous/secondary moderate-sized right-sided pneumothorax, status post ThoraVent insertion, follow-up chest x-ray showing near complete reexpansion of right lung. There is a trace 7 mm residual right apical pneumothorax Acute exacerbation of COPD/emphysema Acute hypoxemic respiratory failure, secondary to above Severe chronic obstructive pulmonary disease, with an FEV1 24% of predicted, FEV1/FVC ratio 32%, uncorrected DLCO 21% of predicted Chronic ongoing tobacco dependence, with over [id number] history History of small right-sided pneumothorax, noted on low-dose CT done September,; follow-up imaging showing complete resolution History of hypothyroidism History of hyperlipidemia History of migraines Chronic lower back pain Recommendation: Continue chest tube to waterseal Continue incentive spirometry Continue oxygen and titrate accordingly Continue bronchodilators Discontinue prednisone, otherwise the healing process will be delayed for his pneumothorax Will continue to follow Time with Patient: Less than 30
--- NOTE | 2024-02-09 07:40 | XR ---
EXAMINATION TYPE: XR chest 2V DATE OF EXAM: 02/09/2024 COMPARISON: 02/08/2024 HISTORY: 63 year-old male right pneumothorax TECHNIQUE: PA and lateral views FINDINGS: Right-sided Thoravent catheter in place. Small right apical pneumothorax measuring 1.7 cm versus 1.0 cm, previously. Right apical pleural-parenchymal scarring. Heart normal size. Hyperinflation. Strandy atelectasis right lower lung. Subcutaneous emphysema right axilla. IMPRESSION: 1. Right-sided pleural catheter in place. Small right apical pneumothorax 1.7 cm now versus 1.0 cm, p reviously. 2. Right apical pleural-parenchymal scarring. Background COPD. [facility], , 02/09/2024 7:38 AM
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
--- NOTE | 2024-02-09 13:56 | P.PN ---
Subjective Progress Note Date: 02/09/24 Patient is a 63-year-old male with past medical history significant for COPD/emphysema, current ongoing tobacco dependence, hyperlipidemia, hypothyroidism. Patient does have very severe COPD with an FEV1 24% of predicted. He has been evaluated by Dr. Hathaway in the pulmonary office in the past, however, no follow-up in the last year. No longer on steroid maintenance inhaler. Denies home O2. Continues to smoke 1/2 to 1 pack/day. Previously, tried quitting with Chantix. Of note, patient has history of previous small right sided pneumothorax noted on low-dose lung CT done September,; I believe this was managed conservatively. Repeat scans show resolution. Patient returns to the emergency department yesterday evening complaining of progressively worsening shortness of breath over the last week. Followed by acute shortness of breath over the last 12-24 hours. Denies fall or traumatic events. Denies infectious-like symptoms. Admits persistent dry cough. Denies chest pain. CBC and CMP on arrival unremarkable. Troponin less than 0.012. NT proBNP low. Chest x-ray demonstrated a moderate size right-sided pneumothorax, estimated at 30%. No tension-like features. Patient is status post ThoraVent insertion by ER provider. Follow-up chest xray showing adequate partial reexpansion of the right lung. Patient was admitted to the selective care unit. Currently on 3 L/min nasal cannula. SpO2 95%. No acute distress. Right chest ThoraVent hooked to suction at -20 cm H2O. Small intermittent airleak continues. Breath sounds are equal. The patient is seen today February 05, 2024 in follow-up on the selective care unit. He is currently sitting up in a chair at the bedside. Awake and alert in no acute distress. Today's chest x-ray reveals evidence of COPD with right sided Thora vent catheter in place and ongoing small right apical pneumothorax. Chest tube to Pleur-evac and wall suction. Positive leak. White count 6.5. Hemoglobin 14.7. Platelets 232. He remains on DuoNeb inhalations, Symbicort, prednisone taper. Lovenox for DVT prophylaxis. NicoDerm patch in place. The patient is seen today February 06, 2024 in follow-up on the selective care unit. He is awake and alert in no acute distress. Maintaining good O2 saturations in the 90s on room air. Right sided Thora vent remains in place. There is a noted leak mostly with coughing. Continued on low continuous wall suction at -20 cm of water. Chest x-ray is revealing a tiny 1 cm right apical pneumothorax. Sodium 136. Potassium 4.3. Bicarb 31. BUN 23. Creatinine 0.61. Glucose 119., Prednisone taper. Lovenox for DVT prophylaxis. NicoDerm patch in place. The patient is seen today February 07, 2024 in follow-up on the selective care unit. He is currently sitting up in a chair. Awake and alert in no acute distress. Thora vent remains in place to the right chest to Pleur-evac and low continuous wall suction. He continues with a small leak mostly with coughing. Chest x-ray reveals a trace 7 mm right apical pneumothorax. He continues to work well with the incentive spirometer he is continued on DuoNeb inhalations, Symbicort, prednisone taper. Lovenox for DVT prophylaxis. NicoDerm patch remains in place. Sodium 137. Potassium 4.3. Bicarb 32. BUN 26. Creatinine 0.61. Glucose 85. The patient is seen today February 09, 2024 in follow-up on the selective care unit. He is awake and alert in no acute distress. Maintaining good O2 saturations in the 90s on room air. His chest x-ray continues to show reexpansion of the right lung. Thora vent remains in place. Currently capped. No leak noted today with deep breathing or coughing. Continues to work well with the incentive spirometer. He remains on DuoNeb and elations, Symbicort. NicoDerm patch in place. Lovenox for DVT prophylaxis. Objective - Vital Signs Vital signs: Vital Signs Temp 98.0 F 02/09/24 08:45 Pulse 72 02/09/24 12:07 Resp 20 02/09/24 08:45 BP 170/93 02/09/24 08:45 Pulse Ox 95 02/09/24 08:45 FiO2 40 02/03/24 17:07 Intake & Output 02/08/24 02/09/24 02/09/24 18:59 06:59 18:59 Intake Total 582 118 Output Total 0 Balance 582 118 Weight 48.5 kg Intake: Oral 582 118 Output: Chest Tube Drainage 0 Thora-Vent Right Anterior 0 Chest Other: Voiding Method Toilet Toilet Urinal Urinal # Voids 4 - Exam GENERAL EXAM: Alert, thin very pleasant 63-year-old male, up in a chair, on room air, in no apparent distress. HEAD: Normocephalic and atraumatic EYES: Normal reaction of pupils, equal size. NOSE: Clear with pink turbinates. THROAT: No erythema or exudates. NECK: No masses, no JVD. CHEST: No chest wall deformity. No crepitus or subcutaneous emphysema LUNGS: Equal air entry. Right chest ThoraVent capped. CVS: S1 and S2 normal with no audible murmur, regular rhythm. No extra heart sounds ABDOMEN: No hepatosplenomegaly, active bowel sounds, no guarding or rigidity. SPINE: No scoliosis or deformity SKIN: No rashes CENTRAL NERVOUS SYSTEM: No focal deficits, tone is normal in all 4 extremities. EXTREMITIES: There is no peripheral edema, clubbing, or cyanosis. Peripheral pulses are intact. - Labs CBC & Chem 7: 02/05/24 08:10 02/07/24 07:17 Assessment and Plan Assessment: Acute spontaneous/secondary moderate-sized right-sided pneumothorax, status post ThoraVent insertion, follow-up chest x-ray showing near complete reexpansion of right lung. Acute exacerbation of COPD/emphysema Acute hypoxemic respiratory failure, secondary to above Severe chronic obstructive pulmonary disease, with an FEV1 24% of predicted, FEV1/FVC ratio 32%, uncorrected DLCO 21% of predicted Chronic ongoing tobacco dependence, with over [id number] history History of small right-sided pneumothorax, noted on low-dose CT done September,; follow-up imaging showing complete resolution History of hypothyroidism History of hyperlipidemia History of migraines Chronic lower back pain Plan: The patient was seen and evaluated Chest x-ray and medications reviewed ThoraVent remains in place, currently off suction Follow-up chest x-ray in a.m. Continue the incentive spirometer Continue bronchodilators, steroids We will continue to follow I have personally seen and examined the patient, performed the documentation and the assessment and plan as written. Number of minutes spent on the visit: 10 Dictation was produced using Unigo[employer] software. Please excuse any grammatical, word or spelling errors.
--- NOTE | 2024-02-09 13:59 | P.PN ---
Subjective Progress Note Date: 02/09/24 Hospital course: 63-year-old male with past medical history of COPD, hypothyroidism, hyperlipide heath came to the ER on 02/03/2024 with a new onset shortness of breath. He was feeling short of breath from several weeks but has worsened significantly last several days. Initial lab work done in the ER showed WBC 8.2, hemoglobin 15.8, platelets 287, APTT 19.6, sodium 136, potassium 4.8, bicarb 27, BUN 23, creatinine 0.68, glucose 142. EKG done in the ER independently interpreted showed heart rate of 114, no ST segment elevation or depression seen, no T-wave inversions seen. Chest x-ray done independently interpreted in the ER showed moderate-sized right-sided pneumothorax, estimated 30%. Hyperinflation. Chest tube was placed in the right upper chest for pneumothorax in the ER. Admitted to internal medicine service for shortness of breath. Pulmonology consulted. Patient started on DuoNebs and IV Solu-Medrol. Continues to be on thora vent to wall suction. Repeat CXR show pneumothorax increasing from 1.4 cm to 1.[address] surgery is consulted. Still worsening pneumothorax. Subjective: Patient seen and examined at the bedside. Patient states his breathing is improving. Mild nonproductive cough. Currently on room air. All Systems reviewed and pertinent positives and negatives noted in HPI, all other symptoms are negative Objective: Vital signs reviewed. General: non toxic, no distress, appears at stated age, thin appearing Derm: no unusual rashes/lesions, warm Head: atraumatic, normocephalic, symmetric Eyes: EOMI, no lid lag, anicteric sclera, pupils equal round reactive to light ENT: Nose and ears atraumatic Neck: No cervical lymphadenopathy, trachea midline, supple Mouth: no lip lesion, mucus membranes moist Cardiovascular: S1S2 reg, no murmur, positive dorsalis pedis pulse bilateral, no edema Lungs: Mild bilateral wheezing with reduced breath sounds on the right apex., no rhonchi, no rales, no accessory muscle use Thoravent catheter placed in right upper chest, not draining any fluid Abdominal: soft, nontender to palpation, no guarding Ext: muscle strength 5 out of 5 in all 4 extremities grossly, no gross muscle atrophy, no contractures, Neuro: CN II-XI grossly intact, no gross focal neuro deficits Psych: Alert, oriented, appropriate affect Data reviewed today: Labs:No new labs Images: Chest x-ray independently interpreted, right-sided Thora vent in place, slightly worsened right apical pneumothorax Assessment and Plan: 63-year-old male with past medical history of COPD, hypothyroidism, hyperlipidemia came to the ER on 02/03/2024 with a new onset shortness of breath is admitted for evaluation of COPD exacerbation and pneumothorax. #Acute COPD exacerbation, resolved # Spontaneous right-sided pneumothorax #Severe emphysema #Acute hypoxic respiratory failure secondary to above #Metabolic alkalosis secondary to above Continue with right Thora vent catheter to low continuous wall suction. continuous pulse oximetry Continue with bronchodilators and DuoNeb Off steroids Discussed management with CT surgery, may need pleurodesis, continued on IV Toradol 15 every 6 hours Continue thoravent to waterseal Encourage use of incentive spirometry Pulmonology note reviewed, continue current therapy Continue to wean oxygen Chronic Medical Conditions #Hyperlidemia - Continue Atorvastatin 40 mg and ezetimibe 10 mg #Hypothyroidism - Continue home Synthroid 125 mcg daily #Chronic migraine Continue home sumatriptan 50 Mg #Chronic back pain Continue home Percocet 7.53 25 4 times daily as needed, monitor for sedation #Tobacco addiction -Continue nicotine patch - Counseled patient on smoking cessation F: P.o. E: Replete as needed N: Heart healthy diet E: None DVT ppx: Subq Lovenox Code status: Full code Anticipated discharge place: Pending clinical course Anticipated discharge time: Pending clinical course Objective - Vital Signs Vital signs: Vital Signs Temp 98.0 F 02/09/24 08:45 Pulse 72 02/09/24 12:07 Resp 20 02/09/24 08:45 BP 170/93 02/09/24 08:45 Pulse Ox 95 02/09/24 08:45 FiO2 40 02/03/24 17:07 Intake & Output 02/08/24 02/09/24 02/09/24 18:59 06:59 18:59 Intake Total 582 118 Output Total 0 Balance 582 118 Weight 48.5 kg Intake: Oral 582 118 Output: Chest Tube Drainage 0 Thora-Vent Right Anterior 0 Chest Other: Voiding Method Toilet Toilet Urinal Urinal # Voids 4 - Labs CBC & Chem 7: 02/05/24 08:10 02/07/24 07:17
--- NOTE | 2024-02-10 08:26 | XR ---
EXAMINATION TYPE: XR chest 1V portable DATE OF EXAM: 02/10/2024 7:09 AM COMPARISON: Chest radiographs from 02/09/2024. CLINICAL INDICATION: Male, 63 years old with history of Right pneumothorax; [facility] TECHNIQUE: XR chest 1V portable Frontal view of the chest. FINDINGS: Lungs/Pleura: Small right pneumothorax. Chest tube in place. There is no evidence of pleural effusion , focal consolidation, or left pneumothorax. Pulmonary vascularity: Unremarkable. Heart/mediastinum: Cardiomediastinal silhouette is unremarkable. Musculoskeletal: No acute osseous pathology. IMPRESSION: Right pneumothorax with chest [address] Small right pneumothorax is unchanged. [facility], , 02/10/2024 8:24 AM
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
[2024-02-10] MEDS: AMOXIC-POT CLAV 875-125MG 1 EACH TAB PO SCH (11:29)
--- NOTE | 2024-02-10 12:41 | XR ---
EXAMINATION TYPE: XR chest 1V portable DATE OF EXAM: 02/10/2024 12:21 PM COMPARISON: Chest radiographs from 02/02/2024. CLINICAL INDICATION: Male, 63 years old with history of Right-sided pneumothorax; TECHNIQUE: XR chest 1V portable Frontal view of the chest. FINDINGS: Lungs/Pleura: Right thoracotomy tube with small right pneumothorax. There is no evidence of pleural e ffusion, focal consolidation, or left pneumothorax. Pulmonary vascularity: Unremarkable. Heart/mediastinum: Cardiomediastinal silhouette is unremarkable. Musculoskeletal: No acute osseous pathology. Subcutaneous emphysema on the right chest wall. IMPRESSION: Right thoracotomy tube with small right pneumothorax. Subcutaneous emphysema also associated with thi s. [facility], , 02/10/2024 12:38 PM
--- NOTE | 2024-02-10 13:02 | CT ---
EXAMINATION TYPE: CT facial bones w con CT DLP: 602.6 mGycm, Automated exposure control for dose reduction was used. DATE OF EXAM: 02/10/2024 12:42 PM COMPARISON: None. CLINICAL INDICATION:Male, 63 years old with history of abscess; PHH, history of pneumothorax. TECHNIQUE: Multiple unenhanced axial CT images were obtained of the facial bones soft tissue and bone windows after the uneventful administration of 100 cc of Isovue 370 intravenously. Coronal, axial a nd sagittal reformatted images were also provided in soft tissue and bone windows and submitted for i nterpretation. FINDINGS: There is no evidence of acute fracture, subluxation, dislocation. Soft tissue gas identified within t he right neck fascial spaces. Gas extends along the retropharyngeal space. Additional gas identified within the right subarticular zone of the spinal canal at C4. Postsurgical changes with fixation hard cheatham involving the bilateral anterior rizzo of the maxillary sinuses and nasal bridge. Left perimandi bular rim enhancing fluid collection measuring 1.8 x 0.4 x 1.0 cm (series 201, image 20). There is anderson rrounding periapical lucency of the bilateral mandibular bicuspids and molars. Fluid collection exten ds from the left mandibular bicuspid periapical region. Surrounding soft tissue swelling. The orbital contents are unremarkable. The temporal-mandibular joints appear symmetric. The visualized portion o f the paranasal sinuses appear clear. The visualized vasculature appears patent. IMPRESSION: 1. Left perimandibular periapical abscess measuring 1.8 x 0.4 x 1.0 cm emanating from a left mandibul ar bicuspid periapical lucency. Additional bilateral mandibular periapical lucencies. 2. Subcutaneous emphysema identified within the right neck fascial planes extending into the C4 right subarticular zone of the spinal canal and retropharyngeal space likely related to tracking of gas fr om known right-sided pneumothorax and subcutaneous emphysema. 3. Postsurgical fixation of the facial bones. [facility], , 02/10/2024 1:00 PM
--- NOTE | 2024-02-10 14:05 | P.PN ---
Subjective Progress Note Date: 02/10/24 Principal diagnosis: Hypoxemic respiratory failure. Patient is a 63-year-old male with past medical history significant for COPD/emphysema, current ongoing tobacco dependence, hyperlipidemia, hypothyroidism. Patient does have very severe COPD with an FEV1 24% of predicted. He has been evaluated by Dr. Hathaway in the pulmonary office in the past, however, no follow-up in the last year. No longer on steroid maintenance inhaler. Denies home O2. Continues to smoke 1/2 to 1 pack/day. Previously, tried quitting with Chantix. Of note, patient has history of previous small rig ht sided pneumothorax noted on low-dose lung CT done September,; I believe this was managed conservatively. Repeat scans show resolution. Patient returns to the emergency department yesterday evening complaining of progressively worsening shortness of breath over the last week. Followed by acute shortness of breath over the last 12-24 hours. Denies fall or traumatic events. Denies infectious-like symptoms. Admits persistent dry cough. Denies chest pain. CBC and CMP on arrival unremarkable. Troponin less than 0.012. NT proBNP low. Chest x-ray demonstrated a moderate size right-sided pneumothorax, estimated at 30%. No tension-like features. Patient is status post ThoraVent insertion by ER provider. Follow-up chest xray showing adequate partial reexpansion of the right lung. Patient was admitted to the selective care unit. Currently on 3 L/min nasal cannula. SpO2 95%. No acute distress. Right chest ThoraVent hooked to suction at -20 cm H2O. Small intermittent airleak continues. Breath sounds are equal. The patient is seen today February 05, 2024 in follow-up on the selective care unit. He is currently sitting up in a chair at the bedside. Awake and alert in no acute distress. Today's chest x-ray reveals evidence of COPD with right sided Thora vent catheter in place and ongoing small right apical pneumothorax. Chest tube to Pleur-evac and wall suction. Positive leak. White count 6.5. Hemoglobin 14.7. Platelets 232. He remains on DuoNeb inhalations, Symbicort, prednisone taper. Lovenox for DVT prophylaxis. NicoDerm patch in place. The patient is seen today February 06, 2024 in follow-up on the selective care unit. He is awake and alert in no acute distress. Maintaining good O2 saturations in the 90s on room air. Right sided Thora vent remains in place. There is a noted leak mostly with coughing. Continued on low continuous wall suction at -20 cm of water. Chest x-ray is revealing a tiny 1 cm right apical pneumothorax. Sodium 136. Potassium 4.3. Bicarb 31. BUN 23. Creatinine 0.61. Glucose 119., Prednisone taper. Lovenox for DVT prophylaxis. NicoDerm patch in place. The patient is seen today February 07, 2024 in follow-up on the selective care unit. He is currently sitting up in a chair. Awake and alert in no acute dist ress. Thora vent remains in place to the right chest to Pleur-evac and low continuous wall suction. He continues with a small leak mostly with coughing. Chest x-ray reveals a trace 7 mm right apical pneumothorax. He continues to work well with the incentive spirometer he is continued on DuoNeb inhalations, Symbicort, prednisone taper. Lovenox for DVT prophylaxis. NicoDerm patch remains in place. Sodium 137. Potassium 4.3. Bicarb 32. BUN 26. Creatinine 0.61. Glucose 85. The patient is seen today February 09, 2024 in follow-up on the selective care unit. He is awake and alert in no acute distress. Maintaining good O2 saturations in the 90s on room air. His chest x-ray continues to show reexpansion of the right lung. Thora vent remains in place. Currently capped. No leak noted today with deep breathing or coughing. Continues to work well with the incentive spirometer. He remains on DuoNeb and elations, Symbicort. NicoDerm patch in place. Lovenox for DVT prophylaxis. Progress note dated February 10, 2024. 63-year-old male seen today in room 381. The patient is resting comfortably in the chair, next to his hospital bed. He is on room air. No IV fluids. He has a Thora vent, in the right chest area. The patient came in with pneumothorax. Currently, he has no complaints. He denies any significant shortness of breath, cough, wheezing, or chest tightness. No new labs today. We spoke to cardiothoracic surgery who stated that they were going to remove the Thora vent today. Chest x-ray shows some subcutaneous emphysema, but no evidence of a significant right sided pneumothorax. Objective - Vital Signs Vital signs: Vital Signs Temp 98.4 F 02/10/24 12:00 Pulse 74 02/10/24 12:00 Resp 16 02/10/24 12:00 BP 161/89 02/10/24 12:00 Pulse Ox 96 02/10/24 12:00 FiO2 40 02/03/24 17:07 Intake & Output 02/09/24 02/10/24 02/10/24 18:59 06:59 18:59 Intake Total 854 10 380 Output Total 405 Balance 449 10 380 Weight 48 kg Intake: IV 10 20 Invasive Line 2 10 10 Invasive Line 3 10 Oral 854 360 Output: Chest Tube Drainage 5 Thora-Vent Right Anterior 5 Chest Urine 400 Other: Voiding Method Toilet Toilet Toilet Urinal Urinal Urinal # Voids 3 3 - Exam No acute distress, oriented 3. Currently on room air. No respiratory distress. HEENT examination is grossly unremarkable. Mucous membranes are moist. No oral lesions. Neck supple. Full range of motion. No adenopathy thyromegaly or neck vein distention. Cardiovascular examination reveals regular rhythm rate. S1-S2 normal. No S3 or S4. No discernible murmur noted. Lungs reveal severely diminished bilateral breath sounds. A Thora vent device is noted in the right anterior chest area. No crackles or wheezes. Breath sounds are equal bilaterally. Abdomen soft bowel sounds are heard. No masses or tenderness. Extremities are intact. No cyanosis clubbing or edema. Skin is without rash or lesion. Neurologic examination is brief but nonfocal. - Labs CBC & Chem 7: 02/05/24 08:10 02/07/24 07:17 Assessment and Plan Assessment: Acute spontaneous, moderate-sized right-sided pneumothorax, status post ThoraVent insertion. Acute exacerbation of COPD/emphysema. Acute hypoxemic respiratory failure. Severe chronic obstructive pulmonary disease, with an FEV1 24% of predicted. Chronic ongoing tobacco dependence, with over 70-heod-bxve history. History of small right-sided pneumothorax, noted on low-dose CT done September,; follow-up imaging showing complete resolution. History of hypothyroidism. History of hyperlipidemia. History of migraines. Chronic lower back pain. Plan: Plan dated February 10, 2024. Cardiothoracic surgery plans to remove the Thora vent device sometime today. The patient will likely have a follow-up chest x-ray. Labs, x-rays, medications are reviewed. The patient's chest x-ray from today shows a very small right- sided pneumothorax. We will continue to follow. Prognosis is guarded. The patient should follow-up in our office. No additional recommendations are made. Time with Patient: Less than 30
--- NOTE | 2024-02-10 15:00 | P.PN ---
Subjective Progress Note Date: 02/10/24 Hospital course: 63-year-old male with past medical history of COPD, hypothyroidism, hyperlipidemia came to the ER on 02/03/2024 with a new onset shortness of breath. He was feeling short of breath from several weeks but has worsened significantly last several days. Initial lab work done in the ER showed WBC 8.2, hemoglobin 15.8, platelets 287, APTT 19.6, sodium 136, potassium 4.8, bicarb 27, BUN 23, creatinine 0.68, glucose 142. EKG done in the ER independently interpreted showed heart rate of 114, no ST segment elevation or depression seen, no T-wave inversions seen. Chest x-ray done independently interpreted in the ER showed moderate-sized right-sided pneumothorax, estimated 30%. Hyperinflation. Chest tube was placed in the right upper chest for pneumothorax in the ER. Admitted to internal medicine service for shortness of breath. Pulmonology consulted. Patient started on DuoNebs and IV Solu-Medrol. Continues to be on thora vent to wall suction. Repeat CXR show pneumothorax increasing from 1.4 cm to 1.[address] surgery is consulted. Still worsening pneumothorax. Patient also developed periodontal abscess during the hospital course. Started on empiric IV antibiotic. Subjective: Patient seen and examined at the bedside. Patient states his breathing is improving. Mild nonproductive cough. Currently on room air. Patient is also complaining of left facial swelling All Systems reviewed and pertinent positives and negatives noted in HPI, all other symptoms are negative Objective: Vital signs reviewed. General: non toxic, no distress, appears at stated age, thin appearing Derm: no unusual rashes/lesions, warm HEENT: Swelling and tenderness upon palpation of the left mandibular area Mouth: no lip lesion, mucus membranes moist Cardiovascular: S1S2 reg, no murmur, positive dorsalis pedis pulse bilateral, no edema Lungs: Mild bilateral wheezing with reduced breath sounds on the right apex., no rhonchi, no rales, no accessory muscle use Thoravent catheter placed in right upper chest, not draining any fluid Abdominal: soft, nontender to palpation, no guarding Ext: muscle strength 5 out of 5 in all 4 extremities grossly, no gross muscle atrophy, no contractures, Neuro: CN II-XI grossly intact, no gross focal neuro deficits Psych: Alert, oriented, appropriate affect Data reviewed today: Labs:No new labs Images: Chest x-ray in a.m. independently interpreted, right-sided Thora vent in place, slightly worsened right apical pneumothorax Repeat chest x-ray independently interpreted show right thoracotomy tube with small right pneumothorax Assessment and Plan: 63-year-old male with past medical history of COPD, hypothyroidism, hyperlipidemia came to the ER on 02/03/2024 with a new onset shortness of breath is admitted for evaluation of COPD exacerbation and pneumothorax. #Acute COPD exacerbation, resolved # Spontaneous right-sided pneumothorax, persistent #Severe emphysema #Acute hypoxic respiratory failure secondary to above #Metabolic alkalosis secondary to above Right Thora vent catheter has been plugged Repeat chest x-ray shows right thoracotomy tube with small right pneumothorax continuous pulse oximetry Continue with bronchodilators and DuoNeb Off steroids Discussed management with CT surgery, may need pleurodesis, continued on IV Toradol 15 every 6 hours Encourage use of incentive spirometry Discussed management with pulmonology, continue current therapy #Dental abscess IVPB Unasyn 3 g every 6 hour Blood culture x 2 Repeat CBC in the morning Consult behavioral health care manager Dr. Bravo for I&D Chronic Medical Conditions #Hyperlidemia - Continue Atorvastatin 40 mg and ezetimibe 10 mg #Hypothyroidism - Continue home Synthroid 125 mcg daily #Chronic migraine Continue home sumatriptan 50 Mg #Chronic back pain Continue home Percocet 7.53 25 4 times daily as needed, monitor for sedation #Tobacco addiction -Continue nicotine patch - Counseled patient on smoking cessation F: P.o. E: Replete as needed N: Heart healthy diet E: None DVT ppx: Subq Lovenox Code status: Full code Anticipated discharge place: Pending clinical course Anticipated discharge time: Pending clinical course I have seen and evaluated the patient today. Discussed with the resident and agree with the residents finding and plan as documented in the resident's note. Changes highlighted in blue font. Objective - Vital Signs Vital signs: Vital Signs Temp 98.4 F 02/10/24 12:00 Pulse 74 02/10/24 12:00 Resp 16 02/10/24 12:00 BP 161/89 02/10/24 12:00 Pulse Ox 96 02/10/24 12:00 FiO2 40 02/03/24 17:07 Intake & Output 02/09/24 02/10/24 02/10/24 18:59 06:59 18:59 Intake Total 854 10 380 Output Total 405 Balance 449 10 380 Weight 48 kg Intake: IV 10 20 Invasive Line 2 10 10 Invasive Line 3 10 Oral 854 360 Output: Chest Tube Drainage 5 Thora-Vent Right Anterior 5 Chest Urine 400 Other: Voiding Method Toilet Toilet Toilet Urinal Urinal Urinal # Voids 3 3 - Labs CBC & Chem 7: 02/05/24 08:10 02/07/24 07:17
[2024-02-10] MEDS: AMPICILLIN-SULBACTAM 3 GM in SODIUM CHLORIDE 0.9% 100 ML IVPB SCH (15:42)
--- NOTE | 2024-02-11 06:46 | XR ---
EXAMINATION TYPE: XR chest 2V DATE OF EXAM: 02/11/2024 6:27 AM COMPARISON: Chest radiograph from one day prior. CLINICAL INDICATION: Male, 63 years old with history of Post Thoravent removal; [facility] TECHNIQUE: XR chest 2V Frontal and lateral views of the chest. FINDINGS: Lungs/Pleura: Right thoracotomy tube has been removed, there remains small right pneumothorax. There is no evidence of pleural effusion, focal consolidation, or left pneumothorax. Pulmonary vascularity: Unremarkable. Heart/mediastinum: Cardiomediastinal silhouette is unremarkable. Musculoskeletal: No acute osseous pathology. Subcutaneous emphysema on the right chest wall. IMPRESSION: Removal of right thoracotomy tube with small right pneumothorax. Subcutaneous emphysema also associat ed with this. [facility], , 02/11/2024 6:43 AM
[2024-02-11 07:31] LABS: Basophils % (A) 0 %; Eosinophils # (A) 0.1 k/uL (0-0.7); Eosinophils % (A) 2 %; HCT 40.6 % (39.0-53.0); HGB 13.4 gm/dL (13.0-17.5); Lymphocytes # (A) 0.7 k/uL (1.0-4.8); Lymphocytes % (A) 9 %; MCH 31.9 pg (25.0-35.0); MCV 96.7 fL (80.0-100.0); Mean Platelet Volume 6.7; Monocytes # (A) 0.4 k/uL (0-1.0); Monocytes % (A) 5 %; Neutrophils # (A) 6.4 k/uL (1.3-7.7); Neutrophils % (A) 83 %; Platelet Count 239 k/uL (150-450); RDW 12.3 % (11.5-15.5); WBC 7.7 k/uL (3.8-10.6)
[2024-02-11 08:16] VITALS: RESP 17
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
[2024-02-11 12:05] VITALS: BP 151/91; TEMP 97.4
--- NOTE | 2024-02-11 12:25 | CT ---
EXAMINATION TYPE: CT Panorex CT DLP: 512.8 mGycm, Automated exposure control for dose reduction was used. DATE OF EXAM: 02/11/2024 11:54 AM COMPARISON: CT facial bones 02/10/2024, chest radiograph 02/11/2024. CLINICAL INDICATION:Male, 63 years old with history of left dental abscess swelling; PHH, dental absc ess TECHNIQUE: Multiple unenhanced axial CT images were obtained of the facial bones soft tissue and bone windows. Coronal, axial and sagittal reformatted images were also provided in soft tissue and bone windows and submitted for interpretation. [facility]. FINDINGS: There is no evidence of acute fracture, subluxation, dislocation. Postsurgical change of a fixator hebert rdware involving the bilateral anterior rizzo of the maxillary sinuses and nasal bridge redemonstrate d. Soft tissue gas identified within the right neck and retropharyngeal soft tissues again. Known lef t perimandibular abscess is poorly visualized due to lack of intravenous contrast. There is surroundi ng edema in this region. Redemonstration of periapical lucency involving the remaining bilateral gerardo ibular bicuspids and molars. The orbital contents are unremarkable. The temporal-mandibular joints ap pear symmetric. The visualized portion of the paranasal sinuses appear clear. IMPRESSION: 1. Periodontal disease with remaining bilateral mandibular bicuspid and molar periapical lucencies c onsistent with periodontitis. 2. Known left perimandibular abscess is poorly visualized due to lack of intravenous contrast. [facility], , 02/11/2024 12:23 PM
[2024-02-11 12:47] VITALS: PULSE 79
--- NOTE | 2024-02-11 12:52 | P.PN ---
Subjective Progress Note Date: 02/11/24 Principal diagnosis: Hypoxemic respiratory failure. Patient is a 63-year-old male with past medical history significant for COPD/emphysema, current ongoing tobacco dependence, hyperlipidemia, hypothyroidism. Patient does have very severe COPD with an FEV1 24% of predicted. He has been evaluated by Dr. Hathaway in the pulmonary office in the past, however, no follow-up in the last year. No longer on steroid maintenance inhaler. Denies home O2. Continues to smoke 1/2 to 1 pack/day. Previously, tried quitting with Chantix. Of note, patient has history of previous small rig ht sided pneumothorax noted on low-dose lung CT done September,; I believe this was managed conservatively. Repeat scans show resolution. Patient returns to the emergency department yesterday evening complaining of progressively worsening shortness of breath over the last week. Followed by acute shortness of breath over the last 12-24 hours. Denies fall or traumatic events. Denies infectious-like symptoms. Admits persistent dry cough. Denies chest pain. CBC and CMP on arrival unremarkable. Troponin less than 0.012. NT proBNP low. Chest x-ray demonstrated a moderate size right-sided pneumothorax, estimated at 30%. No tension-like features. Patient is status post ThoraVent insertion by ER provider. Follow-up chest xray showing adequate partial reexpansion of the right lung. Patient was admitted to the selective care unit. Currently on 3 L/min nasal cannula. SpO2 95%. No acute distress. Right chest ThoraVent hooked to suction at -20 cm H2O. Small intermittent airleak continues. Breath sounds are equal. The patient is seen today February 05, 2024 in follow-up on the selective care unit. He is currently sitting up in a chair at the bedside. Awake and alert in no acute distress. Today's chest x-ray reveals evidence of COPD with right sided Thora vent catheter in place and ongoing small right apical pneumothorax. Chest tube to Pleur-evac and wall suction. Positive leak. White count 6.5. Hemoglobin 14.7. Platelets 232. He remains on DuoNeb inhalations, Symbicort, prednisone taper. Lovenox for DVT prophylaxis. NicoDerm patch in place. The patient is seen today February 06, 2024 in follow-up on the selective care unit. He is awake and alert in no acute distress. Maintaining good O2 saturations in the 90s on room air. Right sided Thora vent remains in place. There is a noted leak mostly with coughing. Continued on low continuous wall suction at -20 cm of water. Chest x-ray is revealing a tiny 1 cm right apical pneumothorax. Sodium 136. Potassium 4.3. Bicarb 31. BUN 23. Creatinine 0.61. Glucose 119., Prednisone taper. Lovenox for DVT prophylaxis. NicoDerm patch in place. The patient is seen today February 07, 2024 in follow-up on the selective care unit. He is currently sitting up in a chair. Awake and alert in no acute dist ress. Thora vent remains in place to the right chest to Pleur-evac and low continuous wall suction. He continues with a small leak mostly with coughing. Chest x-ray reveals a trace 7 mm right apical pneumothorax. He continues to work well with the incentive spirometer he is continued on DuoNeb inhalations, Symbicort, prednisone taper. Lovenox for DVT prophylaxis. NicoDerm patch remains in place. Sodium 137. Potassium 4.3. Bicarb 32. BUN 26. Creatinine 0.61. Glucose 85. The patient is seen today February 09, 2024 in follow-up on the selective care unit. He is awake and alert in no acute distress. Maintaining good O2 saturations in the 90s on room air. His chest x-ray continues to show reexpansion of the right lung. Thora vent remains in place. Currently capped. No leak noted today with deep breathing or coughing. Continues to work well with the incentive spirometer. He remains on DuoNeb and elations, Symbicort. NicoDerm patch in place. Lovenox for DVT prophylaxis. Progress note dated February 10, 2024. 63-year-old male seen today in room 381. The patient is resting comfortably in the chair, next to his hospital bed. He is on room air. No IV fluids. He has a Thora vent, in the right chest area. The patient came in with pneumothorax. Currently, he has no complaints. He denies any significant shortness of breath, cough, wheezing, or chest tightness. No new labs today. We spoke to cardiothoracic surgery who stated that they were going to remove the Thora vent today. Chest x-ray shows some subcutaneous emphysema, but no evidence of a significant right sided pneumothorax. Progress note dated February 11, 2024. 63-year-old male seen today in room 381. The patient is sitting in a chair next to his hospital bed. He is on room air. No IV fluids. The Thora vent device was removed. The patient is currently on IV Unasyn. Current labs include a white count 7.7, hemoglobin 13.4, hematocrit 40.6, and a normal platelet count. A chest x-ray today shows a small right pneumothorax, after the Thora vent device was removed. There is a small amount of subcutaneous emphysema as well. CT of the face shows a left perimandibular periapical abscess. Objective - Vital Signs Vital signs: Vital Signs Temp 97.4 F L 02/11/24 12:00 Pulse 79 02/11/24 12:46 Resp 17 02/11/24 12:00 BP 151/91 02/11/24 12:00 Pulse Ox 97 02/11/24 12:00 FiO2 40 02/03/24 17:07 Intake & Output 02/10/24 02/11/24 02/11/24 18:59 06:59 18:59 Intake Total 600 100 250 Balance 600 100 250 Weight 48 kg Intake: IV 40 10 Invasive Line 2 20 Invasive Line 3 20 10 Oral 560 100 240 Other: Voiding Method Toilet Toilet Urinal Urinal # Voids 1 - Exam No acute distress, oriented 3. Currently on room air. No respiratory distress. HEENT examination is grossly unremarkable. Mucous membranes are moist. No oral lesions. Neck supple. Full range of motion. No adenopathy thyromegaly or neck vein distention. Cardiovascular examination reveals regular rhythm rate. S1-S2 normal. No S3 or S4. No discernible murmur noted. Lungs reveal severely diminished bilateral breath sounds. No crackles or wheezes. Breath sounds are equal bilaterally. Abdomen soft bowel sounds are heard. No masses or tenderness. Extremities are intact. No cyanosis clubbing or edema. Skin is without rash or lesion. Neurologic examination is brief but nonfocal. - Labs CBC & Chem 7: 02/11/24 07:10 02/07/24 07:17 Labs: Abnormal Lab Results - Last 24 Hours (Table) 02/11/24 Range/Units 07:10 RBC 4.20 L (4.30-5.90) m/uL Lymphocytes # 0.7 L (1.0-4.8) k/uL Assessment and Plan Assessment: Acute spontaneous, moderate-sized right-sided pneumothorax, status post ThoraVent insertion, and subsequent removal on February 11, 2024. Acute exacerbation of COPD/emphysema. Acute hypoxemic respiratory failure. Severe chronic obstructive pulmonary disease, with an FEV1 24% of predicted. Chronic ongoing tobacco dependence, with over 20-[id number] history. History of small right-sided pneumothorax, noted on low-dose CT done September,; follow-up imaging showing complete resolution. History of hypothyroidism. History of hyperlipidemia. History of migraines. Chronic lower back pain. Plan: Plan dated February 10, 2024. Cardiothoracic surgery plans to remove the Thora vent device sometime today. The patient will likely have a follow-up chest x-ray. Labs, x-rays, medications are reviewed. The patient's chest x-ray from today shows a very small right- sided pneumothorax. We will continue to follow. Prognosis is guarded. The patient should follow-up in our office. No additional recommendations are made. Plan dated February 11, 2024. The patient appears to be doing reasonably well. The Thora vent device has been removed. The patient had a CT scan of the face, which revealed a periodontal abscess. The patient was placed on Unasyn. Labs, x-rays, medications are reviewed. From the pulmonary standpoint, the patient could be considered for possible discharge. The Thora vent device was removed this morning. The patient could be discharged home on Augmentin, and/or clindamycin. Time with Patient: Less than 30
--- NOTE | 2024-02-11 13:41 | P.DS ---
Providers Date of admission: 02/03/24 18:43 Expected date of discharge: 02/11/24 Attending physician: Iban Grover MD Consults: 02/03/24 18:41 Consult Physician Urgent Consulting Provider: Orlando Conklin Consult Reason/Comments: bipap dependant resp failure, aecopd, pneumothorax Do you want consulting provider notified?: Yes 02/05/24 10:59 Consult Physician Routine Consulting Provider: Wagner Garber Consult Reason/Comments: Persistent pneumothorax Do you want consulting provider notified?: Already Contacted 02/11/24 09:02 Consult Physician Urgent Consulting Provider: Larisa Jack Consult Reason/Comments: dental abscess Do you want consulting provider notified?: Yes [facility] Course: Discharge Diagnosis: #Acute COPD exacerbation, resolved #Spontaneous right-sided pneumothorax, persistent #Severe emphysema #Subcutaneous emphysema #Acute hypoxic respiratory failure secondary to above #Metabolic alkalosis secondary to above #Dental abscess #Hyperlidemia #Hypothyroidism #Chronic migraine #Chronic back pain #Tobacco addiction Hospital Course: 63-year-old male with past medical history of COPD, hypothyroidism, hyperlipidemia came to the ER on 02/03/2024 with a new onset shortness of breath. He was feeling short of breath from several weeks but has worsened significantly last several days. Initial lab work done in the ER showed WBC 8.2, hemoglobin 15.8, platelets 287, APTT 19.6, sodium 136, potassium 4.8, bicarb 27, BUN 23, creatinine 0.68, glucose 142. EKG done in the ER independently interpreted showed heart rate of 114, no ST segment elevation or depression seen, no T-wave inversions seen. Chest x-ray done independently interpreted in the ER showed moderate-sized right-sided pneumothorax, estimated 30%. Hyperinflation. Chest tube was placed in the right upper chest for pneumothorax in the ER. Admitted to internal medicine service for shortness of breath. P ulmonology consulted. CT surgery is consulted. Patient started on DuoNebs and IV Solu-Medrol. Continues to be on thora vent to wall suction. Repeat CXR show improving pneumothorax. Thora vent was removed. Patient also developed periodontal abscess during the hospital course. Started on empiric IV antibiotic. Dental surgery consulted. Patient to see dental surgery outpatient for abscess drainage. Patient to continue on oral antibiotic for 10 days. Patient is otherwise medically optimized for discharge. Discharge instruction: Patient is advised to follow-up with PCP: Pulmonology and dental surgeon Patient is provided with handout/instruction on spontaneous pneumothorax, dental abscess, emphysema and COPD Patient to continue with his home meds as directed. Patient provided with new prescription for Augmentin 875/125 1 tab every 12 hours x 10 days and Symbicort 160/4.5 mcg inhaler. Vital signs reviewed. General: non toxic, no distress, appears at stated age, thin appearing Derm: no unusual rashes/lesions, warm HEENT: Swelling and tenderness upon palpation of the left mandibular area Mouth: no lip lesion, mucus membranes moist Cardiovascular: S1S2 reg, no murmur, positive dorsalis pedis pulse bilateral, no edema Lungs: Mild bilateral wheezing with reduced breath sounds on the right apex., no rhonchi, no rales, no accessory muscle use Thoravent catheter placed in right upper chest, not draining any fluid Abdominal: soft, nontender to palpation, no guarding Ext: muscle strength 5 out of 5 in all 4 extremities grossly, no gross muscle atrophy, no contractures, Neuro: CN II-XI grossly intact, no gross focal neuro deficits Psych: Alert, oriented, appropriate affect A total of 36 minutes of time were spent preparing this complex discharge summary. Patient was discharged on 02/11/2024 at 1254. I have seen and evaluated the patient today. Discussed with the resident and agree with the residents finding and plan as documented in the resident's note. Changes highlighted in blue font. Patient Condition at Discharge: Stable Plan - Discharge Summary Discharge Rx Participant: Yes New Discharge Prescriptions: New Amoxic-Pot Clav 875-125Mg [Augmentin 875-125] 1 tab PO Q12HR 10 Days #20 tab Budesonide-Formot 160-4.5 Mcg [Symbicort 160-4.5 Mcg Inhaler] 2 puff INHALATION RT-BID #1 each Continue Albuterol Inhaler [Ventolin Hfa Inhaler] 1 - 2 puff INHALATION Q6HR PRN PRN Reason: Wheezing oxyCODONE-APAP 7.5-325MG [Percocet 7.5-325 mg] 1 tab PO QID PRN PRN Reason: Pain SUMAtriptan succinate [Imitrex] 50 mg PO DAILY PRN PRN Reason: Migraine Headache Rosuvastatin Calcium [Crestor] 40 mg PO DAILY Levothyroxine Sodium [Synthroid] 125 mcg PO DAILY Ezetimibe [Zetia] 10 mg PO DAILY Discharge Medication List Albuterol Inhaler [Ventolin Hfa Inhaler] 1 - 2 puff INHALATION Q6HR PRN 12/28/16 [History] SUMAtriptan succinate [Imitrex] 50 mg PO DAILY PRN 04/17/21 [History] Ezetimibe [Zetia] 10 mg PO DAILY 02/03/24 [History] Levothyroxine Sodium [Synthroid] 125 mcg PO DAILY 02/03/24 [History] Rosuvastatin Calcium [Crestor] 40 mg PO DAILY 02/03/24 [History] oxyCODONE-APAP 7.5-325MG [Percocet 7.5-325 mg] 1 tab PO QID PRN 02/03/24 [History] Amoxic-Pot Clav 875-125Mg [Augmentin 875-125] 1 tab PO Q12HR 10 Days #20 tab 02/11/24 [Rx] Budesonide-Formot 160-4.5 Mcg [Symbicort 160-4.5 Mcg Inhaler] 2 puff INHALATION RT-BID #1 each 02/11/24 [Rx] Follow up Appointment(s)/Referral(s): Jose Hathaway DO [Doctor of Osteopathic Medicine] - 02/24/24 9:30 am Larisa Jack DDS [STAFF PHYSICIAN] - 02/13/24 1:00 pm (please arrive at 1245) Inder Abernathy DO [Primary Care Provider] - 02/14/24 10:20 am Patient Instructions/Handouts: Spontaneous Pneumothorax (DC), Dental Abscess (GEN), Emphysema (DC), COPD (Chronic Obstructive Pulmonary Disease) (DC) Activity/Diet/Wound Care/Special Instructions: Please see pulmonology, PCP and dentist as soon as possible. Please call dentist as soon as possible for teeth extraction. Discharge Disposition: HOME SELF-CARE
== END 2024-02-11 14:43 | disposition home or self-care (01) | DRG 143 ==
LOC: EC 15:49 → 3SCARD 18:43
PROVIDERS: ADMIT Internal Medicine; ATTEND Internal Medicine
PROC: 0W9930Z Drainage of Right Pleural Cavity with Drainage Device, Percutaneous Approach (ICD-10-PCS; principal; 2024-02-03)
PROC: 5A09357 Assistance with Respiratory Ventilation, Less than 24 Consecutive Hours, Continuous Positive Airway Pressure (ICD-10-PCS; 2024-02-03)
DX: J93.83 Other pneumothorax (principal); F17.200 Nicotine dependence, unspecified, uncomplicated; E87.3 Alkalosis; G43.909 Migraine, unspecified, not intractable, without status migrainosus; G89.29 Other chronic pain; J43.9 Emphysema, unspecified; J44.1 Chronic obstructive pulmonary disease with (acute) exacerbation; J93.82 Other air leak; J96.01 Acute respiratory failure with hypoxia; K04.7 Periapical abscess without sinus; M54.50 Low back pain, unspecified; E03.9 Hypothyroidism, unspecified; E78.5 Hyperlipidemia, unspecified; T79.7XXA Traumatic subcutaneous emphysema, initial encounter; Z79.51 Long term (current) use of inhaled steroids; Z79.890 Hormone replacement therapy; Z79.899 Other long term (current) drug therapy; Z28.310 Unvaccinated for COVID-19
CPT/HCPCS: 32551; 36415; 70486; 70487; 71045; 71046; 80048; 80053; 83605; 83880; 84484; 85025; 85610; 85730; 87040; 93005; 94640; 94660; 94760; 96365; 99152; 99153; 99291